=== PATIENT | female | born 1945 | race Caucasian/White ===

== ENCOUNTER → 2024-05-23 09:10 | Outpatient (REF) | payer MEDICARE, OTHER, SELFPAY | LOC: HWWDC 09:10 | PROVIDERS: ATTENDING PHYSICIAN Internal Medicine | DX: Z12.31 Encounter for screening mammogram for malignant neoplasm of breast (principal) | CPT/HCPCS: 77063; 77067 ==

== ENCOUNTER → 2024-06-27 12:02 | Outpatient (REF) | payer MEDICARE, OTHER, SELFPAY | LOC: HWRAD 12:02 | PROVIDERS: ATTENDING PHYSICIAN Nurse Practitioner | DX: M25.512 Pain in left shoulder (principal) | CPT/HCPCS: 73030 ==

== ENCOUNTER → 2024-09-07 11:56 | Outpatient (REF) | payer MEDICARE, OTHER, SELFPAY | LOC: HWRAD 11:56 | PROVIDERS: ATTENDING PHYSICIAN Nurse Practitioner; FAMILY PHYSICIAN Internal Medicine | DX: M25.512 Pain in left shoulder (principal); R10.11 Right upper quadrant pain | CPT/HCPCS: 73200; 76700 ==

== ENCOUNTER 2025-06-14 19:41 | Inpatient (IN) | payer MEDICARE, OTHER, SELFPAY ==
[2025-06-14] VITALS (8 sets, daily range): BP systolic 162–196; BP diastolic 89–106; BMI 22.1; BMI 21.9
[2025-06-14 11:39] LABS: Hematocrit 44.2 % (37.0-47.0); Hemoglobin 14.5 g/dL (12.0-16.0); Mean Corp Hgb Conc. 32.8 g/dL (33.0-37.0); Mean Corpuscular Volume 102.1 fL (81.0-99.0); Nucleated Red Blood Cells % 0 %; Platelet Count 348 10^3/uL (130-400); Red Cell Dist. Width 12.8 % (11.5-14.5)
[2025-06-14 12:11] LABS: Blood Urea Nitrogen 35 mg/dl (7-17); Calcium 9.7 mg/dl (8.4-10.2); Carbon Dioxide 22 mmol/L (22-30); Chloride 111 mmol/L (98-107); Estimated Creatinine Clearance 33 ml/min; Glucose 113 mg/dl (70-99); Sodium 140 mmol/L (135-145); eGFR 46.33
--- NOTE | 2025-06-14 12:33 | ED.GENMED ---
History of Present Illness
General
Chief Complaint: Weakness
Source: patient
Exam Limitations: none
Time Seen by Provider: 06/14/25 12:06
Nursing documentation reviewed up to this point in time: agreed with
History of Present Illness
History of Present Illness:
Patient is a 80-year-old female with history CHF, CAD with pacemaker/defibrillator, hypertension, hyperlipidemia, diabetes who presents the emergency department with 4 days of generalized weakness and lower abdominal discomfort. Patient states that
over the past 4 days she has been extremely fatigued and generally weak feeling that she cannot get out of bed. She reports experiencing urinary frequency over the past few days and lower abdominal discomfort. She feels the urge to urinate
frequently although very little urine comes out. She also reports a few episodes of loose stools although this does occasionally have abnormal bowel movements.
Patient denies any fever, chills, cough, or other URI symptoms. She denies any chest pain, shortness of breath. She denies any back pain, lightheadedness/dizziness. No focal weakness or other neurologic symptoms. No headache.
Past History
Past History
ED Past Medical History: Arrthythmia, CAD, CHF, HTN and Other (Peptic ulcer disease)
ED Past Surgical History: None and Appendectomy
Social History
Tobacco: Non-smoker
Review of Systems
Review of Systems
Allergies reviewed?: Yes
All Other Systems: ROS reviewed and negative except as documented in HPI and ROS
Phy Exam
Physical Exam
Physical Exam:
Vitals: Hypertensive, otherwise vital signs stable. Afebrile
General: Patient is well appearing, no acute distress
Skin: Warm and dry, no rashes or lesions
Head: Normocephalic, atraumatic
Eyes: Sclera nonicteric.
Throat: Protecting airway
Neck: Normal ROM, no cervical spine tenderness, no meningismus
Cardiac: Regular rate and rhythm, no murmurs.
Pulm: Normal respiratory effort, no wheezes, rales, rhonchi heard on exam
Abdomen: Abdomen soft. Tenderness in suprapubic area/ LLQ without rebound tenderness or guarding. No CVA tenderness.
Extremities: No evidence of cyanosis or edema. 2+ palpable DP pulses
Neuro: AAOx3. CN II-XII grossly intact. Strength 5/5 and equal in bilateral upper/lower extremities. No facial droop or asymmetry. Fluid speech. No focal neurologic deficits.
Psychiatric: Normal affect.
Course
Orders/Labs/Results
Orders:
Orders
06/14/25 11:34
Basic Metabolic Panel Urgent
CPK [Creatine Phosphokinase] Urgent
Complete Blood Count/With Diff Urgent
06/14/25 12:31
pacemaker [Interrogate Pacemaker- Treatment] ONCE
06/14/25 12:32
Electrocardiogram (*1) Urgent
Reason for Study: Fatigue / Weakness
CT Abd/pelvis W Iv Cont Urgent
Comment:
Reason For Exam: Lower abdominal pain, weakness
EKG- Treatment ONCE
06/14/25 13:57
Urinalysis Reflex To Culture Urgent
Date Specimen was Collected: 06/14/25
Time Specimen was Collected: 13:54
Urine Microscopic Reflex Cult Urgent
Urine Culture Urgent
HOMERO Source: U
Specimen Description:
Date Specimen was Collected: 06/14/25
Time Specimen was Collected: 13:54
06/14/25 15:34
Basic Metabolic Panel Urgent
Bzdci-Sstk-Fzyjkbq Urgent
NT-proBNP Urgent
Potassium Urgent
Troponin I Urgent
06/14/25 15:37
Acetaminophen [Tylenol] 650 mg PO NOW STA
06/14/25 17:45
0.9% Sodium Chloride 500 ml [Nss] 500 ml IV BOLUS
06/14/25 17:57
Piperacillin/Tazo 3.375 Gram [Zosyn] 3.375 gram in 50 ml IV NOW
06/14/25 18:00
COVID-19 Antigen Urgent
Source: Nasal Swab
06/14/25 18:26
Admit/Transfer Patient As Directed
Co-Sign Provider:
Level of Care: Inpatient admission
Assign to:: Telemetry
Physician / Group: pee sy
Diagnosis: UTI
Reason for Telemetry: Arrhythmia
Date to Stop Telemetry: 06/17/25
Time to Stop Telemetry: 11:00
Reason for Hospitalization: UTI
Expected length of stay greater than two midnights?: Yes
ELOS- Estimated Length of Stay in days: 3
I certify the patient meets the requirements for IP care: Yes
06/14/25 18:27
Code Status As Directed
Resuscitation Status: Full Code
PRN Pain Medication Management As Directed
May give lesser potent ordered pain med per pt: Yes
preference::
Protocol:: Medication orders for pain may be administered in a
manner that supports deferring to patient preference
when the pt is:
- Requesting an ordered lesser potent pain medication.
Least to most potent pain medications are defined
as: acetaminophen < NSAID < tramadol < opioids
(morphine, oxycodone, hydromorphone).
- Requesting a lesser dose of the same medication IF
ORDERED.
- Requesting a less intrusive route of administration
if both routes are prescribed by the provider (PO <
IV).
06/14/25 19:15
Lyme PCR, DNA [S] Routine
Lyme Progressive Routine
Norovirus by PCR Stat
HOMERO Source: Feces/Stool
Specimen Description:
Date Specimen was Collected: 06/14/25
Time Specimen was Collected: 19:11
STOOL [C difficile Antigen & Toxins] Urgent
HOMERO Source: Feces/Stool
Specimen Description:
Date Specimen was Collected: 06/14/25
Time Specimen was Collected: 19:11
Stool Culture Urgent
HOMERO Source: Feces/Stool
Specimen Description:
Date Specimen was Collected: 06/14/25
Time Specimen was Collected: 19:11
06/14/25 20:27
Acetaminophen [Tylenol] 650 mg PO Q4HPRN PRN
Carvedilol [Coreg] 6.25 mg PO BID
Heparin 5,000 units SC Q12
Oxycodone [Roxicodone] 5 mg PO Q6HPRN PRN severe pains
06/14/25 20:27
Activity As Directed
Activity Level: As Tolerated
Intake/ Output As Directed
Frequency: Per unit guidelines
Vital Signs As Directed
Frequency: Per unit guidelines
Weight As Directed
Frequency: Daily
DX Deep Vein Thrombosis Video Routine
06/14/25 22:00
Aspirin Low Dose EC [Aspir Low (Enteric Coated)] 81 mg PO HS
Rosuvastatin Calcium [Crestor] 10 mg PO HS
06/15/25 07:02
Basic Metabolic Panel IN AM
Complete Blood Count/No Diff IN AM
Glycohemoglobin (HgbA1c) IN AM
06/16/25 06:00
Complete Blood Count/No Diff IN AM
06/17/25 06:00
Complete Blood Count/No Diff IN AM
06/17/25 11:00
DC Protocol for Telemetry ONCE
Abnormal Lab Results
06/14/25 06/14/25 06/14/25
11:34 13:57 15:34
WBC 15.2 H 10^3/uL
(4.8-10.8)
MCV 102.1 H fL
(81.0-99.0)
MCH 33.5 H pg
(27.0-31.0)
MCHC 32.8 L g/dL
(33.0-37.0)
Abs Immat Gran (auto) 0.1 H 10^3/uL
(0-0.05)
Absolute Neuts (auto) 12.1 H 10^3/uL
(1.4-6.5)
Absolute Monos (auto) 1.0 H 10^3/uL
(0.1-0.6)
Neutrophils % 80.1 H %
(42.2-75.2)
Lymphocytes % 11.9 L %
(20.5-51.1)
Chloride 111 H mmol/L 110 H mmol/L
(98-107) (98-107)
Carbon Dioxide 21 L mmol/L
(22-30)
BUN 35 H mg/dl 35 H mg/dl
(7-17) (7-17)
Creatinine 1.2 H mg/dL 1.2 H mg/dL
(0.6-1.0) (0.6-1.0)
Glucose 113 H mg/dl 105 H mg/dl
(70-99) (70-99)
Direct Bilirubin 0.5 H mg/dl
(0.0-0.4)
Alkaline Phosphatase 136 H U/L
(38-126)
Creatine Kinase 26 L U/L
(30-135)
Urine Ketones 1+ A
(Negative)
Ur Occult Blood Reflex 1+ A
(Negative)
Urine Bilirubin 1+ A
(Negative)
Leukocyte Esterase Rfl 3+ A
(Negative)
Urine WBC (Reflex) 16-20 A /HPF
(0-5)
Urine Bacteria (Reflex) Many A
(Negative)
Urine Albumin (Reflex) 2+ A
(Neg - Trace)
06/14/25 11:34
06/14/25 15:34
Vital Signs
Initial and Last Documented VS:
Initial Vital Signs
Temp Pulse Resp BP Pulse Ox
97.8 F 94 20 176/106 98
06/14/25 10:25 07/18/25 10:25 06/14/25 10:25 06/14/25 10:25 06/14/25 10:25
Last Documented Vital Signs
Temp Pulse Resp BP Pulse Ox
98.5 F 76 18 196/105 100
06/15/25 15:30 06/15/25 15:30 06/15/25 15:30 06/15/25 15:30 06/15/25 15:30
MDM/Problems Addressed
Differential Diagnosis Includes:
Not limited to: Acute dehydration, viral illness, cardiac arrhythmia, pacemaker malfunction, UTI, pyelonephritis, diverticulitis, etc.
MDM/Problems Addressed:
80-year-old female presenting with 4 days of generalized weakness associated with lower abdominal discomfort and urinary frequency. No fever or chills. No chest pain or shortness of breath. Hypertensive on arrival, otherwise stable and afebrile.
Physical exam as above. Patient in no apparent distress, nontoxic appearing. Abdomen soft with mild lower abdominal discomfort. No rebound tenderness or guarding. Cardio/pulmonary assessment unremarkable. Differential broad although includes
dehydration, viral illness, cardiac arrhythmia, etc. ED plan: Check labs, UA, viral studies. Will obtain CT scan/pelvis. Will obtain EKG and interrogate pacemaker.
Update: Leukocytosis of 14.3. Chemistry reveals mild renal insufficiency which remains around her baseline. BNP of 1740. Troponin undetectable. Urine appears somewhat infected with many bacteria and 16-20 WBCs although possible component of
contamination given many squamous cells noted. CT scan reveals findings consistent with acute infectious pancolitis�likely contributing to patient's symptoms today. Will send stool studies. Given CT findings as well as possible UTI and
significant weakness�feel patient to be admitted for IV antibiotics, further evaluation. Zosyn initiated in ED. Patient accepted to hospitalist service in stable condition.
Chronic conditions affecting care:
CHF, CAD with pacemaker/defibrillator, hypertension
Acute Exacerbation and/or Progression of Chronic Illness:
Acutely hypertensive
*Radiology
Radiology exam reviewed: radiology read reviewed
*Pulse Oximetry
SaO2: 99
Patient hypoxic: no
*EKG
Interpreted by ED Provider?: Yes
EKG Intrepretation Date: 06/14/25
Interpretation: abnormal
Comparison EKG: changes noted
Heart Rate: 74
Rate: normal
Rhythm: ventricular paced
[place]: normal axis
*Instrumentation Engineering Technician Interpretation
Rate: normal
Interpretation: normal
Heart Rate: 80
Rhythm: ventricular paced
*Critical Care Note
Total Time (30-74mins, 75-104mins- exclusive of procedures): Not Applicable
Patient Management
Discussion with other providers: Hospitalist
Escalation/DeEscalation of care consider admission/obs:
Admit for IV antibiotics, further management
ED Attending Note
-
Portions of this chart may have been created with voice recognition software.� Occasional wrong word or��sound alike� substitutions may have occurred due to the inherent limitations of voice recognition software.
Discharge Plan
Departure
Patient Disposition: Admit
Date of Disposition: 06/14/25
Time of Disposition: 17:57
Presentation/result/management discussed w/ accepting MD/DO: Hospitalist
Discharge Problem:
Pancolitis, Weakness, Acute UTI
Interventions
Interventions:
*Risk Screen - Suicide Last Done: 06/14/25 10:25
*General Assessment Last Done: 06/14/25 10:25
*Neglect/Abuse Screening Last Done: 06/14/25 10:25
*ED- Fall Risk Assessment Last Done: 06/14/25 12:02
*ED COVID-19 Vaccine History Last Done: 06/14/25 12:02
*Nursing Disposition Last Done: 06/14/25 20:06
ED- Cardiac Assessment Last Done: 06/14/25 12:02
ED- Neurological Assessment Last Done: 06/14/25 12:02
ED- Pulmonary Assessment Last Done: 06/14/25 12:02
Discharge Date and Time
Discharge Date/Time: 06/14/25 20:06
[2025-06-14 14:14] LABS: Urine Character Slightly Cloudy (Clear)
[2025-06-14 15:03] LABS: Urine Squamous Cell 21-25 /LPF (Few)
[2025-06-14 15:04] LABS: Urine Red Blood Cell 0-2 /HPF (0-2); Urine White Cell 16-20 /HPF (0-5)
[2025-06-14] MEDS: TYLENOL 650 MG PO (15:41)
[2025-06-14 15:53] LABS: Blood Urea Nitrogen 35 mg/dl (7-17); Calcium 10.0 mg/dl (8.4-10.2); Carbon Dioxide 21 mmol/L (22-30); Chloride 110 mmol/L (98-107); Estimated Creatinine Clearance 33 ml/min; Glucose 105 mg/dl (70-99); Potassium 4.5 mmol/L (3.5-5.1); Sodium 140 mmol/L (135-145); eGFR 46.33
[2025-06-14 15:57] LABS: ALT (SGPT) 12 U/L (0-35); AST (SGOT) 20 U/L (14-36); Albumin 4.7 g/dl (3.5-5.0); Alkaline Phosphatase 136 U/L (38-126); Potassium 4.5 mmol/L (3.5-5.1); Total Protein 8.0 g/dl (6.3-8.2)
[2025-06-14 16:05] LABS: Troponin I < 0.012 ng/ml
[2025-06-14] MEDS: NSS 500 IV (17:57)
--- NOTE | 2025-06-14 18:08 | HPS.HSE ---
Family Physician
-
Family Physician: Daniel Greco
Chief Complaint
-
generalized weakness.
History of Present Illness
80-year-old female with history CHF, CAD with pacemaker/defibrillator, hypertension, hyperlipidemia, diabetes who presents the emergency department with 5 days of generalized weakness and lower abdominal discomfort. Patient states that over the
past 4 days she has been extremely fatigued and generally weak feeling that she cannot get out of bed. She reports experiencing urinary frequency over the past few days and lower abdominal discomfort. denied dysuria or hematuria. She feels the
urge to urinate frequently although very little urine comes out. She also reports a few episodes of loose stools although this does occasionally have abnormal bowel movements.Patient denies any fever, chills, cough. She denies any chest pain,
shortness of breath. She denies any back pain, lightheadedness/dizziness.
CT with panculitis. positive UA. Patient received a dose of Zosyn, normal Nelson catheter following ER. Admitting for further management
Medical History
Past Medical History
Past Medical History: Reports Other
Additional Past Medical History:
Hyperlipidemia
Hypertension
CKD
A-fib
CHF
Type 2 diabetes
Dizziness
Respiratory
Past Surgical History: Reports Other
Additional Past Surgical History:
Right knee replacement
Cardiac pacemaker
Umbilical hernia repair
Social History
Tobacco: Former Smoker
Alcohol: Occasional
Drug: None
Family History
Family History: Not pertinent
Allergies / Home Medications
Allergies reflects when Allergies were last updated in [facility].
Home Medications with original date entered in [facility]
Allergy/Medication List:
Allergies
Allergy/AdvReac Type Severity Reaction Status Date / Time
fluticasone (From Flonase) Allergy Unknown Verified 06/14/25 10:29
doxycycline AdvReac Mild Nausea Verified 06/14/25 10:29
Home Medications
carvedilol 6.25 mg tablet 6.25 mg PO BID Blood pressure 10/07/15
losartan 50 mg tablet 50 mg PO DAILY Blood pressure 10/07/15
rosuvastatin 10 mg tablet 10 mg PO HS High cholesterol 10/07/15
acetaminophen 500 mg tablet (Tylenol Extra Strength) 1,000 mg PO Q6HPRN PRN MILD PAIN 10/09/21
aspirin 81 mg tablet,delayed release 81 mg PO HS Blood clot prevention/tx 04/26/22
esomeprazole magnesium 20 mg capsule,delayed release 20 mg PO DAILY Gastrointestinal issue 04/26/22
magnesium carbonate 54 mg/5 mL oral liquid (Magonate (magnesium carb)) 86 mg PO HS Constipation 04/26/22
benzonatate 100 mg capsule 200 mg (2 x 100 mg) PO TID PRN cough #30 caps 05/03/22
cephalexin 500 mg capsule 500 mg PO QID 7 days #28 caps 05/03/22
gabapentin 100 mg capsule 100 mg PO HS #30 caps 05/03/22
guaifenesin 600 mg tablet, extended release 12 hr (Mucus Relief ER) 1,200 mg (2 x 600 mg) PO Q12 #30 tabs 05/03/22
lidocaine 4 % topical patch (Aspercreme (lidocaine)) 1 patch topical DAILY #30 patches 05/03/22
oxycodone 5 mg tablet 5 mg PO Q4HPRN PRN mod pain #5 tabs 05/03/22
sennosides 8.6 mg-docusate sodium 50 mg tablet 1 tab PO DAILYPRN PRN constipation #20 tabs 05/03/22
Review of Systems
-
Constitutional: Reports No Symptoms
EENT: Reports No Symptoms
Respiratory: Reports No Symptoms
Cardiac: Reports No Symptoms
Abdomen/GI: Reports Abdominal Pain and Diarrhea
: Reports Urgency
Musculoskeletal: Reports No Symptoms
Skin: Reports No Symptoms
Neurological: Reports Weakness
Endocrine: Reports No Symptoms
Hematologic/Lymphatic: Reports No Symptoms
Psych: Reports No Symptoms
Physical Exam
Vital Signs
Vital Signs
Temp Pulse Resp BP Pulse Ox
97.8 F 81 15 189/105 96
06/14/25 10:25 06/14/25 17:30 06/14/25 17:30 06/14/25 15:34 06/14/25 17:30
Physical Exam
General: Well Developed, Well Nourished and No Apparent Distress
HEENT: NormoCephalic, Moist mucous membranes and Atraumatic
Respiratory: Clear
Cardiac: S1/S2 and Regular Rhythm; No Murmur or Rub
GI: Soft, Non Tender, Non Distended and Normal Bowel Sounds; No Organomegaly
Rectal: Deferred by Provider
Musculoskeletal: No Clubbing, No Cyanosis and No Edema
Skin: No Rash
Neuro: AO x 3 and Nonfocal/grossly intact
Psych: Calm
Laboratory Results
-
06/14/25 11:34
06/14/25 15:34
Laboratory Results
Total Bilirubin 0.8 mg/dl (0.2-1.3) 06/14/25 15:34
AST 20 U/L (14-36) 06/14/25 15:34
ALT 12 U/L (0-35) 06/14/25 15:34
Alkaline Phosphatase 136 U/L (38-126) H 06/14/25 15:34
Troponin I < 0.012 ng/ml 06/14/25 15:34
Data Reviewed
-
CT Scan: Report Reviewed by me
Lab Data: Labs Reviewed by me
Impression/Plan
-
# Acute infectious pancolitis
- WBC 15.2
- IV Zosyn continued
- Stool studies pending
- CT with the impression of MILD ACUTE INFECTIOUS PANCOLITIS.
# Possible UTI
- IV Zosyn continued
- Urine culture pending
# CKD stage IIIb
- Creatinine 1.2
# Paroxysmal A-fib
- Obtain EKG
-cont COPY LATHE TENDER coreg with hold parameter
-not on AC likely due to recent PUD
# Peptic ulcer disease
# chronic HFpEF
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
# HTN, stable
-c/w COPY LATHE TENDER coreg
-hold losartan
#DVT ppx: HSQ
#FC
[2025-06-14] MEDS: ZOSYN 50 IV (18:27)
[2025-06-14 18:34] LABS: COVID-19 Antigen Negative (Negative)
--- NOTE | 2025-06-14 18:54 | W.PN.UPDATE ---
Update Note
Progress Note Update
This note serves as an addendum to the H&P by culinary artist SERENE Leny FRAZIER
HPI
80F HX CHF, CAD with pacemaker/defibrillator, hypertension, hyperlipidemia, diabetes seen at ER:
- 4 days of generalized weakness and lower abdominal discomfort.
- extremely fatigued and generally weak feeling that she cannot get out of bed.
- urinary frequency and urgency over the past few days and lower abdominal discomfort.
- few episodes of loose stools although this does occasionally have abnormal bowel movements.
ROS
denies any fever, chills, cough, or other URI symptoms.
denies any chest pain, shortness of breath.
denies any back pain, lightheadedness/dizziness.
No focal weakness or other neurologic symptoms. No headache.
Relevant VS
Vital Signs
Temp Pulse Resp BP Pulse Ox
97.8 F 73 21 189/105 98
06/14/25 10:25 06/14/25 18:45 06/14/25 18:45 06/14/25 15:34 06/14/25 18:30
PE
Gen: NAD
Neck: supple
Lungs: CTA
Cor: RR no mumu
Abdomen: Tenderness in suprapubic area/ LLQ without rebound tenderness or guarding. No CVA tenderness.
INWEAVER: NFND
MS: no edema
Lab
06/14/25 06/14/25
11:34 15:34
WBC 15.2 H
Chloride 111 H 110 H
Carbon Dioxide 21 L
BUN 35 H 35 H
Creatinine 1.2 H 1.2 H
eGFR 46.33 46.33
Troponin I < 0.012
Ssm-M-Jlgahfqeesw Pept 1740
CT Abd/pelvis W Iv Cont
1. MILD ACUTE INFECTIOUS PANCOLITIS.
2. Severe diverticulosis in the sigmoid colon.
3. Severe calcific atherosclerotic plaque in the abdominal aorta.
4. Severe bilateral renal scarring.
5. Moderate distention of the left renal pelvis (possibly secondary to a partial obstruction of the left ureteropelvic junction).
6. Mild intrahepatic and extrahepatic biliary dilatation with mild biliary wall hyperenhancement suggesting cholangitis.
7. Cholelithiasis without evidence for acute cholecystitis.
8. Multilevel vertebral body endplate fractures in the lower thoracic and upper lumbar spine.
9. Severe discogenic degenerative disease and facet joint arthrosis in the lower lumbar spine.
Last hospitalist admission: 04/26/2022 - 05/03/2022
1. HAP methicillin-sensitive Staph aureus.
2. 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
ASSESSMENT & PLAN
Pending Rx reconciliation
Acute pancolitis presumed infective with tender abdomen
Severe diverticulosis in the sigmoid colon.
- No vomiting
- Stool: Cx and C Diff
- Noro Virus
- Diabetic diet
- IVF
- Empiric Zosyn
HX Prx AF
- cont VIDEO MANAGER Coreg with hold parameter
- not on AC likely due to recent PUD
HX PUD in 2021
- Hold VIDEO MANAGER PPI due to risk for C Diff
HX chronic HFpEF
HX CM
with Bi-V ICD implant
HX CKD4
- Hold Losartan if she is on it
- Hold Metformin
Benign HTN
- c/w VIDEO MANAGER Coreg
- hold losartan
T2DM
- hold VIDEO MANAGER metformin
- ISS low
DVT Px: SQH
Full code
IP MS
[2025-06-14] MEDS: ASPIR LOW (ENTERIC COATED) 81 MG PO (21:50)
[2025-06-14] MEDS: CRESTOR 10 MG PO (21:50)
[2025-06-14] MEDS: HEPARIN 5000 UNITS SC (21:50)
[2025-06-14] MEDS: COREG 6.25 MG PO (21:50)
[2025-06-14] MEDS: ROXICODONE 5 MG PO (22:07)
[2025-06-14] MEDS: MELATONIN 3 MG PO (22:07)
[2025-06-15] VITALS (8 sets, daily range): BP systolic 148–196; BP diastolic 61–105; BMI 21.7
[2025-06-15] MEDS: ZOSYN 50 IV ×4 (05:53→17:01)
[2025-06-15] MEDS: NSS 1000 IV (06:13)
--- NOTE | 2025-06-15 07:27 | W.PN.HOSP.TC ---
Addendum entered and electronically signed by Bryan Ramirez MD 06/15/25 21:45:
Earlier today, I called and updated patient's son Neal (and Neal's ) over the phone. I answered all of their questions and concerns to satisfaction.
It is important to note that patient:
-has NOT had any bloody diarrhea or any bloody bowel movements (both patient herself and patient's son Neal confirmed this with me)
-Patient's abdominal pain is not out of proportion to abdominal exam/abdominal palpation
Original Note:
Today's Communication/Plan
-
Continue antibiotics
Continue IV fluids
Pain control
NPO
MRCP
Assessment / Plan
Assessment / Plan
Physical Exam
General: Not in acute distress
HEENT: Normocephalic, Moist mucous membranes and Atraumatic
Respiratory: Clear to Auscultation Bilaterally
Cardiac: S1/S2 and Regular Rhythm
GI: Soft, Non Distended and Normal Bowel Sounds. Tenderness present.
Musculoskeletal: No Cyanosis and No Edema
Skin: Warm. Dry.
Neuro: AO x 3 and Nonfocal/grossly intact
Psych: Calm
Assessment/Plan
80-year-old female with history CHF, CAD with pacemaker/defibrillator, hypertension, hyperlipidemia, and diabetes mellitus who presented to the emergency department with 5 days of generalized weakness and lower abdominal discomfort. She had been
extremely fatigued and generally weak, feeling that she could not get out of bed. She reported experiencing urinary frequency and urgency over the few days prior to arrival as well. She denied dysuria or hematuria. She also reported a few episodes
of loose stools although she does occasionally have abnormal bowel movements. At the time of admission, patient denied any fever, chills, cough, chest pain, shortness of breath, back pain, lightheadedness/dizziness.
#Presentation with Generalized Weakness, Fatigue and Lower Abdominal Discomfort, few episodes of loose stools
#Acute infectious pancolitis
#Severe diverticulosis in the sigmoid colon
#Mild intrahepatic and extrahepatic biliary dilatation with mild biliary wall hyperenhancement suggesting cholangitis
#Cholelithiasis
#Leukocytosis
- Continue IV antibiotics with Zosyn
- C. diff negative. Norovirus negative.
- NPO except medication, ice chips, sips of clears
- IV fluids
- MCRP
- GI consult given cholangitis/dilated biliary ducts on CT imaging
- Trend CMP
#Non Anion Gap Metabolic Acidosis
- Could be from normal saline IV fluids, diarrhea
- Stop normal saline IV fluids
- Start LR @ 75 cc/hr -- LR generates bicarb and bicarb is currently 19, if not improving or worsened then can consider bicarb drip
#Symptoms of urinary frequency and urinary urgency prior to arrival
#Oliguria prior to arrival
- IV Zosyn continued
- Urine culture growing gram negative bacilli
#Paroxysmal Atrial Fibrillation
- cont HEAVY TRUCK TECHNICIAN Coreg with hold parameter
- not on AC likely due to recent peptic ulcer disease
#History of Peptic Ulcer Disease in 2021
- Received red blood cell transfusions around the time of having peptic ulcer disease
- Resume PPI
#Chronic HFpEF
#History of cardiomyopathy status post Bi-V ICD
-Continue home Coreg and Losartan
#Chronic Kidney Disease Stage 3
- Monitor BMP
#Hypertension
- Continue home Coreg
- Continue losartan
#Hyperlipidemia
- Continue Rosuvastatin
#Diabetes Mellitus
- ISS low
#History of hospital-acquired pneumonia with methicillin-sensitive Staph aureus in 2021
#History of Right Knee Surgery
#History of Compression Fracture
#Severe calcific atherosclerotic plaque in the abdominal aorta.
#Severe bilateral renal scarring.
#Moderate distention of the left renal pelvis (possibly secondary to a partial obstruction of the left ureteropelvic junction).
#Multilevel vertebral body endplate fractures in the lower thoracic and upper lumbar spine.
#Severe discogenic degenerative disease and facet joint arthrosis in the lower lumbar spine.
DVT Prophylaxis: Heparin subq
Code Status: Full code
Anticipated Discharge: > 48 hours
Subjective/Interval History
-
Date of Service: June 15, 2025
Patient was seen and examined. She reported continued abdominal discomfort. No new symptoms since being admitted to the hospital.
Objective Data
-
Labs:
Laboratory Results
06/15/25
07:02
WBC Pending
Hgb Pending
Hct Pending
Plt Count Pending
Sodium Pending
Potassium Pending
Chloride Pending
Carbon Dioxide Pending
BUN Pending
Creatinine Pending
Glucose Pending
Calcium Pending
Vital Signs:
Vital Signs
Temp Pulse Resp BP Pulse Ox
97.9 F 93 14 148/73 98
06/15/25 03:00 06/15/25 03:00 06/15/25 03:00 06/15/25 03:00 06/15/25 03:00
[2025-06-15] MEDS: COREG 6.25 MG PO ×2 (07:37→19:20)
[2025-06-15] MEDS: HEPARIN 5000 UNITS SC ×2 (07:37→19:20)
[2025-06-15 08:05] LABS: Hematocrit 39.4 % (37.0-47.0); Hemoglobin 13.0 g/dL (12.0-16.0); Mean Corp Hgb Conc. 33.0 g/dL (33.0-37.0); Mean Corpuscular Volume 101.3 fL (81.0-99.0); Platelet Count 298 10^3/uL (130-400); Red Cell Dist. Width 13.0 % (11.5-14.5)
[2025-06-15 08:34] LABS: Blood Urea Nitrogen 34 mg/dl (7-17); Calcium 9.4 mg/dl (8.4-10.2); Carbon Dioxide 15 mmol/L (22-30); Chloride 108 mmol/L (98-107); Estimated Creatinine Clearance 33 ml/min; Glucose 167 mg/dl (70-99); Potassium 4.4 mmol/L (3.5-5.1); Sodium 139 mmol/L (135-145); eGFR 46.33
[2025-06-15 09:06] LABS: Glycohemoglobin (HgbA1c) 5.8 % (4.0-5.6)
[2025-06-15] MEDS: ROXICODONE 5 MG PO ×2 (12:47→19:22)
[2025-06-15 16:07] LABS: ALT (SGPT) 11 U/L (0-35); AST (SGOT) 19 U/L (14-36); Albumin 4.3 g/dl (3.5-5.0); Alkaline Phosphatase 102 U/L (38-126); Blood Urea Nitrogen 32 mg/dl (7-17); Calcium 9.3 mg/dl (8.4-10.2); Carbon Dioxide 19 mmol/L (22-30); Chloride 108 mmol/L (98-107); Estimated Creatinine Clearance 33 ml/min; Glucose 133 mg/dl (70-99); Magnesium 2.0 mg/dl (1.6-2.3); Potassium 4.3 mmol/L (3.5-5.1); Sodium 138 mmol/L (135-145); Total Protein 7.1 g/dl (6.3-8.2); eGFR 46.33
[2025-06-15] MEDS: NORVASC 2.5 MG PO (16:14)
[2025-06-15] MEDS: COZAAR 100 MG PO (16:15)
[2025-06-15] MEDS: LR 1000 IV (16:55)
[2025-06-15] MEDS: ASPIR LOW (ENTERIC COATED) 81 MG PO (19:20)
[2025-06-15] MEDS: CRESTOR 10 MG PO (19:20)
[2025-06-15] MEDS: TYLENOL 650 MG PO (19:20)
[2025-06-16] VITALS (29 sets, daily range): BP systolic 111–212; BP diastolic 53–104; BMI 21.8
[2025-06-16] MEDS: TYLENOL 650 MG PO ×4 (00:03→20:07)
[2025-06-16] MEDS: ZOSYN 50 IV ×4 (00:04→17:58)
[2025-06-16] MEDS: APRESOLINE 5 MG IV ×2 (00:05→04:01)
[2025-06-16] MEDS: TIGAN 200 MG IM (02:34)
[2025-06-16] MEDS: ROXICODONE 5 MG PO (04:58)
[2025-06-16] MEDS: BENADRYL 12.5 MG IV (05:33)
[2025-06-16 07:14] LABS: Hematocrit 40.0 % (37.0-47.0); Hemoglobin 14.0 g/dL (12.0-16.0); Mean Corp Hgb Conc. 35.0 g/dL (33.0-37.0); Mean Corpuscular Volume 97.3 fL (81.0-99.0); Nucleated Red Blood Cells % 0 %; Platelet Count 287 10^3/uL (130-400); Red Cell Dist. Width 12.6 % (11.5-14.5)
[2025-06-16 07:34] LABS: ALT (SGPT) < 10 U/L (0-35); AST (SGOT) 20 U/L (14-36); Albumin 4.4 g/dl (3.5-5.0); Alkaline Phosphatase 105 U/L (38-126); Blood Urea Nitrogen 30 mg/dl (7-17); Calcium 9.8 mg/dl (8.4-10.2); Carbon Dioxide 20 mmol/L (22-30); Chloride 103 mmol/L (98-107); Estimated Creatinine Clearance 40 ml/min; Glucose 128 mg/dl (70-99); Potassium 3.7 mmol/L (3.5-5.1); Sodium 135 mmol/L (135-145); Total Protein 7.6 g/dl (6.3-8.2); eGFR 57.66
[2025-06-16] MEDS: LR 1000 IV (07:43)
[2025-06-16] MEDS: NORVASC 2.5 MG PO ×2 (07:43→11:32)
[2025-06-16] MEDS: COREG 6.25 MG PO ×2 (07:43→20:01)
[2025-06-16] MEDS: COZAAR 100 MG PO (07:44)
[2025-06-16] MEDS: HEPARIN 5000 UNITS SC ×2 (07:44→20:01)
--- NOTE | 2025-06-16 08:21 | W.PN.HOSP.TC ---
Addendum entered and electronically signed by Bryan Ramirez MD 06/16/25 20:36:
Just now, I called and updated patient's son Neal (and Neal's ) over the phone. I answered all of their questions and concerns to satisfaction.
Original Note:
Today's Communication/Plan
-
Cardene Drip to be started in ICU
Continue antibiotics
See below
Assessment / Plan
Assessment / Plan
Physical Exam
General: Not in acute distress
HEENT: Normocephalic, Moist mucous membranes and Atraumatic
Respiratory: Clear to Auscultation Bilaterally
Cardiac: S1/S2 and Regular Rhythm
GI: Soft, Non Distended and Normal Bowel Sounds. Tenderness present.
Musculoskeletal: No Cyanosis and No Edema
Skin: Warm. Dry.
Neuro: AAO x 3. Cranial Nerves 2 through 12 intact. Strength 5/5 in the bilateral upper and lower extremities. Sensation grossly intact bilaterally.
Psych: Calm
Assessment/Plan
80-year-old female with history CHF, CAD with pacemaker/defibrillator, hypertension, hyperlipidemia, and diabetes mellitus who presented to the emergency department with 5 days of generalized weakness and lower abdominal discomfort. She had been
extremely fatigued and generally weak, feeling that she could not get out of bed. She reported experiencing urinary frequency and urgency over the few days prior to arrival as well. She denied dysuria or hematuria. She also reported a few episodes
of loose stools although she does occasionally have abnormal bowel movements. At the time of admission, patient denied any fever, chills, cough, chest pain, shortness of breath, back pain, lightheadedness/dizziness.
#Presentation with Generalized Weakness, Fatigue and Lower Abdominal Discomfort, few episodes of loose stools
#Acute infectious pancolitis
#Severe diverticulosis in the sigmoid colon
#Mild intrahepatic and extrahepatic biliary dilatation with mild biliary wall hyperenhancement suggesting cholangitis
#Cholelithiasis
#Leukocytosis
- Continue IV antibiotics with Zosyn -- consulted ID given worsening leukocytosis and immature granulocytes despite Zosyn. Appreciate ID.
- C. diff negative. Norovirus negative.
- NPO except medication, ice chips, sips of clears
- IV fluids stopped given high blood pressure, can consider resuming at a lower dose later say at 50 cc/hr
- MCRP
- GI consult given cholangitis/dilated biliary ducts on CT imaging
- Trend CMP
- Appreciate GI: constipation and chronic opioid use are concerns, Mag citrate 10oz cleanse today; Adv to low residue diet afterwards; Miralax going forward
- GI feels infectious colitis is not supported by history and cholangitis is less likely (even though seen on imaging) but follow-up MRCP. Still continue antibiotics in the setting of leukocytosis and concern
for infection -- patient still at least has a UTI (see below)
-Per GI recommendations: Mag citrate 10oz cleanse today; Adv to low residue diet afterwards; Miralax going forward
#Significant Headache
-Could be from high blood pressure, cholangitis, colitis, antibiotics
-Checked CT Head (see below)
#Hypertensive Emergency
#Hypertension
- Despite treatment of patient's blood pressure with the medications below, her blood pressure remains very high with systolic 180s+ mmHg, patient has severe headache, discussed with machine operations supervisor and
transfer to ICU
- Continue home Coreg
- Continue losartan
- Added Amlodipine
- PRN Hydralazine
- Start Cardene Drip in the ICU with hypertensive emergency protocol
#Lacunar Stroke on CT Head 06/16/25
- Patient's neurological exam as of 06/16/25 was normal, but CT Head was done given severe headache in the setting if high blood pressure
- CT Head showed a stroke -- uncertain whether acute or chronic -- and in the setting of very high blood pressure -- consulted neurology
- I communicated with Dr. Haro (neurologist) via [employer], we discussed patient's CT Head findings from 06/16/25, and he agreed that patient should be treated as hypertensive emergency at this time with
Cardene Drip given
- Appreciate neurology
#Non Anion Gap Metabolic Acidosis
- Could be from normal saline IV fluids, diarrhea
- Stopped previously given normal saline IV fluids
- LR was subsequently given, bicarb improved
#Symptoms of urinary frequency and urinary urgency prior to arrival
#Oliguria prior to arrival
#Klebsiella Pneumoniae UTI
- IV Zosyn continued
- Urine culture grew Klebsiella, sensitive to Zosyn
#Paroxysmal Atrial Fibrillation
- cont JEWELRY DEPARTMENT SUPERVISOR Coreg with hold parameter
- not on AC likely due to recent peptic ulcer disease
#History of Peptic Ulcer Disease in 2021
- Received red blood cell transfusions around the time of having peptic ulcer disease
- Resume PPI
#Chronic HFpEF
#History of cardiomyopathy status post Bi-V ICD
-Continue home Coreg and Losartan
#Chronic Kidney Disease Stage 3
- Monitor BMP
#Hyperlipidemia
- Continue Rosuvastatin
#Diabetes Mellitus
- ISS low
#History of hospital-acquired pneumonia with methicillin-sensitive Staph aureus in 2021
#History of Right Knee Surgery
#History of Compression Fracture
#Severe calcific atherosclerotic plaque in the abdominal aorta.
#Severe bilateral renal scarring.
#Moderate distention of the left renal pelvis (possibly secondary to a partial obstruction of the left ureteropelvic junction).
#Multilevel vertebral body endplate fractures in the lower thoracic and upper lumbar spine.
#Severe discogenic degenerative disease and facet joint arthrosis in the lower lumbar spine.
DVT Prophylaxis: Heparin subq
Code Status: Full code
Hypertensive emergency is a high risk encounter
Anticipated Discharge: > 48 hours
Subjective/Interval History
-
Date of Service: June 16, 2025
Patient was seen and examined. She reported significant headache in the setting if high blood pressure. Still with nauseous feeling.
Objective Data
-
Labs:
Laboratory Results
06/16/25
06:42
WBC 19.1 H
Hgb 14.0
Hct 40.0
Plt Count 287
Sodium 135
Potassium 3.7
Chloride 103
Carbon Dioxide 20 L
BUN 30 H
Creatinine 1.0
Glucose 128 H
Calcium 9.8
Total Bilirubin 0.9
AST 20
ALT < 10
Alkaline Phosphatase 105
Vital Signs:
Vital Signs
Temp Pulse Resp BP Pulse Ox
98.7 F 79 16 166/88 98
06/16/25 03:00 06/16/25 03:00 06/16/25 03:00 06/16/25 06:10 06/16/25 03:00
--- NOTE | 2025-06-16 09:53 | CM ---
Chart reviewed and business case analyst met with patient and patient was admitted for UTI. Patient states she lives alone in a bilevel home with 4 steps to enter and 3 steps to bed and bathroom, patient reports she is independent with adl's and uses a cane
with ambulation due to some back pain.
PCP: Dr. Greco
Pharmacy: [facility] in [place]
Plan; Home no needs when stable.
--- NOTE | 2025-06-16 11:29 | CON.GI ---
Addendum entered and electronically signed by Deepali Celaya Do, MD 06/16/25 12:58:
I saw and evaluated the patient. I reviewed the resident�s note and agree with findings and plan as documented in the resident�s note. +
Hannah is a 77yo W lives alone with h/o DM, CAD and chroinc pain on opioids who presents for abd bloating and constipation. She also has fecal genia kage upon coughing or urination dependent on pad daily for past 6 mo. She denies diarrhea. She
denies blood in stools. Vitals stable. exam obese abdomen, NTTP, no guarding or rebound Labs reviewed WBC mildly elevated. CTAP with IV no oral contrast with pancolitis, tics, mild intra and extrahepatic ductal dilation. gallstones.
Impression
- Constipation
- Abnormal CT scan with thickening of pancolitis and ? biliary dilation
Mild biliary dilation is often seen with chronic opioid use and increased age. LFTs normal so low suspicion for cholangitis
- Chronic opioid use
- DM
- Hyperlipidemia
- Remote h/o PUD
- Pacemaker
- Umbilical hernia repair
- H/o back pain
Recommendation
- Mag citrate 10oz cleanse today
- Adv to low residue diet afterwards
- Miralax doing going forward
- No diarrhea at all since admission so stool studies not done. History not consistent with infectious colitis
- MRCP pending
- Continue to trend LFT but have been normal so less likely biliary obstruction
- May benefit from OP colonoscopy if constipation persists.
Will follow with you.
Original Note:
Consultation
-
Date/Time Consultation Requested: 06/15/2025
Date/Time Consultation Performed: 06/16/2025
Medical History
Chief Complaint / HPI
Chief Complaint: Lower abdominal pain
History of Present Illness:
Patient is a 80-year-old female with past medical history of coronary artery disease, hyperlipidemia, diabetes mellitus, and has been taking oxycodone 5 mg twice daily for chronic pain and as needed MiraLAX for constipation. She has been using
MiraLAX on as-needed basis for constipation and she feels like. She took extra dose and that contributed to her bowel movements becoming softer. She was at a dinner, she went to the bathroom to urinate and that is when she had another episode, it
was not watery but semisolid and contained no blood and was not black in color. She has had no issues with her bowels in the past. The diarrhea self resolved and she came to the ER because of urinary frequency, urgency and lower abdominal
heaviness.
She normally has no issues with eating fatty food, is diagnosed with gallstones and drinks 2 shots of tonic every day.
She denies any NSAID use, any new supplements use, recent weight loss, reflux, heartburn, indigestion, or issues with swallowing
Past Medical History
Past Medical History: Other (Hyperlipidemia, Type 2 diabetes, cholelithiasis)
Past Surgical History: Other (Umbilical hernia repair, cardiac pacemaker)
Social History
Tobacco: Former Smoker
Alcohol: Daily
Drug: None
Family History
Family History: Other (Denies any family history of stomach cancer, colon cancer, biliary issues, IBD)
Allergies / Home Medications
Allergy/AdvReac Type Severity Reaction Status Date / Time
doxycycline Allergy Nausea Verified 06/14/25 20:15
fluticasone (From Flonase) Allergy Unknown Verified 06/14/25 10:29
�Medication �Instructions �Recorded
carvedilol 6.25 mg tablet 6.25 mg PO BID Blood pressure 10/07/15
losartan 50 mg tablet 100 mg PO DAILY Blood pressure 10/07/15
rosuvastatin 10 mg tablet 10 mg PO HS High cholesterol 10/07/15
aspirin 81 mg tablet,delayed 81 mg PO HS Blood clot 04/26/22
release prevention/tx
oxycodone 10 mg tablet 10 mg PO Q6HPRN PRN severe pains 06/14/25
Review of Systems
-
All other systems: A 12 pt ROS was Negative except as stated above in HPI
Vital Signs
Temp Pulse Resp BP Pulse Ox
97.6 F 131 20 184/104 97
06/16/25 07:00 06/16/25 07:00 06/16/25 07:00 06/16/25 07:00 06/16/25 07:00
Physical Exam
Exam
General: Well Developed, No Apparent Distress and Other (Obese)
HEENT: Anicteric and Moist Mucous Membranes
Respiratory: Clear
Cardiac: S1/S2 and Regular Rhythm
GI: Soft, Normal Bowel Sounds and Tender (Tender in the epigastric and right upper quadrant region)
Musculoskeletal: No Clubbing, No Cyanosis and No Edema
Skin: Warm and Dry
Neuro: Awake and Oriented
Psych: Calm
Results
WBC 19.1 10^3/uL (4.8-10.8) H 06/16/25 06:42
Hgb 14.0 g/dL (12.0-16.0) 06/16/25 06:42
Hct 40.0 % (37.0-47.0) 06/16/25 06:42
MCV 97.3 fL (81.0-99.0) 06/16/25 06:42
Plt Count 287 10^3/uL (130-400) 06/16/25 06:42
Absolute Neuts (auto) 16.5 10^3/uL (1.4-6.5) H 06/16/25 06:42
Sodium 135 mmol/L (135-145) 06/16/25 06:42
Potassium 3.7 mmol/L (3.5-5.1) 06/16/25 06:42
Chloride 103 mmol/L (98-107) 06/16/25 06:42
Carbon Dioxide 20 mmol/L (22-30) L 06/16/25 06:42
BUN 30 mg/dl (7-17) H 06/16/25 06:42
Creatinine 1.0 mg/dL (0.6-1.0) 06/16/25 06:42
Calcium 9.8 mg/dl (8.4-10.2) 06/16/25 06:42
Total Bilirubin 0.9 mg/dl (0.2-1.3) 06/16/25 06:42
AST 20 U/L (14-36) 06/16/25 06:42
ALT < 10 U/L (0-35) 06/16/25 06:42
Alkaline Phosphatase 105 U/L (38-126) 06/16/25 06:42
Diagnostic Image Results:
01/2025
IMPRESSION:Cholelithiasis; gallbladder contains several small stones. No secondary findings for acute cholecystitis.Nonspecific dilatation of the common bile duct up to 12 mm (previously 6 mm on 02/16/2021) and mildprominence of the pancreatic duct
measuring up to 2.6 mm
06/14/2025
IMPRESSION:
1. MILD ACUTE INFECTIOUS PANCOLITIS.
2. Severe diverticulosis in the sigmoid colon.
3. Severe calcific atherosclerotic plaque in the abdominal aorta.
4. Severe bilateral renal scarring.
5. Moderate distention of the left renal pelvis (possibly secondary to a partial obstruction of the left ureteropelvic junction).
6. Mild intrahepatic and extrahepatic biliary dilatation with mild biliary wall hyperenhancement suggesting cholangitis.
7. Cholelithiasis without evidence for acute cholecystitis.
8. Multilevel vertebral body endplate fractures in the lower thoracic and upper lumbar spine.
9. Severe discogenic degenerative disease and facet joint arthrosis in the lower lumbar spine.
Prior GI Procedures:
EGD: Brandon Nichols MD
[id number] of acute gastric ulcer with hemorrhage
Impression: - Normal esophagus.
- Z-line regular, 37 cm from the incisors.
- Minimal antral gastritis. Biopsied for Helicobacter
pylori testing.
- Scar in the gastric antrum from previous ulcer.
- Normal examined duodenum. Biopsied for evaluation of
celiac disease.
Colonoscopy:
Indications: Screening for colorectal malignant neoplasm
Providers: Brandon Nichols MD
2008
Impression: - Mild diverticulosis in the sigmoid colon and in the
descending colon.
Assessment / Plan
-
Impression
Leukocytosis
History of cholelithiasis-history of extrahepatic duct dilatation-MRI/MRCP pending
History of alcohol use
Obese
Chronic opioid use for back pain
chronic constipation
History of diverticulosis
Stool studies negative, recent C. difficile
Follow stool culture
On Zosyn-Klebsiella on urine culture
Hypertension
Diabetes mellitus
Coronary artery disease
Recommendations
MRI/MRCP to evaluate for choledocholithiasis -if positive-plan ERCP
Post MRCP-can put on diet
Continue IV fluids
Follow blood cultures for bacteremia
-
-
Thank you for consultation and allowing me to participate in the patient's care. Please call the utility worker production GI physician during the after hours with any questions or concerns.
[2025-06-16] MEDS: CITROMA 300 ML PO (12:41)
--- NOTE | 2025-06-16 17:50 | CON.NEURO ---
Neuro Assessment/Plan
Assessment
agree with ICU for cardene gtt, this is typical appearing lacunar stroke, typically asymptomatic, small vessel etiology, and would not require permissive HTN 24-48 hrs, nor do I have a way to answer that question. would recommend the usual blood
pressure settings in accelerated HTN.
after blood pressure and infection are managed and she is downgraded, would obtain vascular imaging; CTA would be my preferred study
once all her real medical problems are addressed, they're interested in MRI to answer the stroke's acuity would be reasonable if they still want it, and they understand that it will not change the management, with her cardiac history stroke risk
will always be high, and there may be other more useful questions to be answered.
Consultation
Order
Date of Consultation: 06/16/25
Requesting Provider: Bryan Ramirez
Reason for Consult: Stroke, blood pressure goals
Subjective/Objective
Subjective Data
Date of Service: June 16, 2025
from h&p:
80-year-old female with history CHF, CAD with pacemaker/defibrillator, hypertension, hyperlipidemia, diabetes who presents the emergency department with 5 days of generalized weakness and lower abdominal discomfort. Patient states that over the
past 4 days she has been extremely fatigued and generally weak feeling that she cannot get out of bed. She reports experiencing urinary frequency over the past few days and lower abdominal discomfort. denied dysuria or hematuria. She feels the
urge to urinate frequently although very little urine comes out. She also reports a few episodes of loose stools although this does occasionally have abnormal bowel movements.Patient denies any fever, chills, cough. She denies any chest pain,
shortness of breath. She denies any back pain, lightheadedness/dizziness.
CT with panculitis. positive UA. Patient received a dose of Zosyn, normal Nelson catheter following ER. Admitting for further management
Patient had head CT showing age indeterminate 1cm right putamen/external capsule stroke. patient with accelerated HTN, as high as 212 systolic, being transferred to ICU for Cardene gtt, question of if stroke
she denies ever having stroke symptoms, except that when she was here Oct 2023 she presented with transient weakness, slurred speech, right sided weakness, at the time diagnosed TIA, at the time head CT also showed an age indeterminate stroke (right
thalamic)
Objective Data
Vital Signs
Temp Pulse Resp BP Pulse Ox
36.7 C 98 18 184/98 98
06/16/25 15:00 06/16/25 15:00 06/16/25 15:00 06/16/25 15:00 06/16/25 15:00
Lab Results
06/16/25 06:42
06/16/25 06:42
Sodium 135 mmol/L (135-145) 06/16/25 06:42
Potassium 3.7 mmol/L (3.5-5.1) 06/16/25 06:42
BUN 30 mg/dl (7-17) H 06/16/25 06:42
Glucose 128 mg/dl (70-99) H 06/16/25 06:42
Calcium 9.8 mg/dl (8.4-10.2) 06/16/25 06:42
Usm-X-Cuwglmwawmi Pept 1740 pg/ml 06/14/25 15:34
Patient Allergies
doxycycline Allergy (Verified 06/14/25 20:15)
Nausea
fluticasone (From Flonase) Allergy (Verified 06/14/25 10:29)
Unknown
Medications
-
Active Medications
Generic Name Dose Route Start Last Admin
Trade Name Freq PRN Reason Stop Dose Admin
Acetaminophen 650 mg 06/14/25 20:27 06/16/25 09:31
Acetaminophen 325 Mg Tablet PO 07/12/25 20:26 650 mg
Q4HPRN PRN Administration
mild pain/IRIZARRY/temp> 100.4F
Amlodipine Besylate 5 mg 06/16/25 20:00
Amlodipine 5 Mg Tablet PO 07/14/25 19:59
BID LIZ
Aspirin 81 mg 06/14/25 22:00 06/15/25 19:20
Aspirin 81 Mg (Enteric Coated) Tablet PO 07/12/25 21:59 81 mg
HS LIZ Administration
Carvedilol 6.25 mg 06/14/25 20:27 06/16/25 07:43
Carvedilol 6.25 Mg Tablet PO 07/12/25 20:26 6.25 mg
BID LIZ Administration
Heparin Sodium 5,000 units 06/14/25 20:27 06/16/25 07:44
Heparin 5,000 Units/Ml 1 Ml Vial SC 07/12/25 20: 5,000 units
Q12 LIZ Administration
Hydralazine HCl 5 mg 06/16/25 14:47
Hydralazine 20 Mg/Ml Vial IV 07/14/25 14:46
Q4HPRN PRN
SBP>170 mmHg
Piperacillin Sod/Tazobactam Sod 2.25 grams in 50 mls @ 100 mls/hr 06/15/25 00:00 06/16/25 11:33
Zosyn IV 50 mls
Q6H LIZ Administration
Nicardipine/Sodium Chloride 40 mg in 200 mls @ 0 mls/hr 06/16/25 17:15
Cardene IV
PER PROTOCOL LIZ
Protocol
Per Protocol
Losartan Potassium 100 mg 06/15/25 16:00 06/16/25 07:44
Losartan 50 Mg Tablet PO 07/13/25 15:59 100 mg
DAILY LIZ Administration
Melatonin 3 mg 06/14/25 22:00 06/16/25 00:00
Melatonin 3 Mg Tablet PO 07/12/25 21:59 3 mg
HS LIZ Administration
Oxycodone HCl 5 mg 06/14/25 20:27 06/16/25 04:58
Oxycodone 5 Mg Regular Release Tablet PO 06/28/25 20:26 5 mg
Q6HPRN PRN Administration
severe pains
Rosuvastatin Calcium 10 mg 06/14/25 22:00 06/15/25 19:20
Rosuvastatin (Crestor) 10 Mg Tablet PO 07/12/25 21:59 10 mg
HS LIZ Administration
Sodium Chloride 0 flush 06/14/25 21:00
Sodium Chloride 0.9% (Flush) Syringe IV 07/12/25 20:59
PER PROTOCOL LIZ
Home Medications
�Medication �Instructions �Recorded
carvedilol 6.25 mg tablet 6.25 mg PO BID Blood pressure 10/07/15
losartan 50 mg tablet 100 mg PO DAILY Blood pressure 10/07/15
rosuvastatin 10 mg tablet 10 mg PO HS High cholesterol 10/07/15
aspirin 81 mg tablet,delayed 81 mg PO HS Blood clot 04/26/22
release prevention/tx
oxycodone 10 mg tablet 10 mg PO Q6HPRN PRN severe pains 06/14/25
[2025-06-16] MEDS: CARDENE 200 IV (18:53)
--- NOTE | 2025-06-16 19:00 | PTCARENOTE ---
Pt received from floor to ICU bed 3362. Pt AAOx3. Ambulated to bed with steady gait. V-paced. HR 102. BP 201/98 on arrival. Cardene started per order. BP improved to 167/88.
[2025-06-16] MEDS: NORVASC 5 MG PO (20:01)
--- NOTE | 2025-06-16 21:37 | PTCARENOTE ---
Pt is Aox3, VSS, Vpaced 100% on monitor. Cardene gtt per protocol. C/o lower back pain, PRN Tylenol given.
[2025-06-16] MEDS: CRESTOR 10 MG PO (22:07)
[2025-06-16] MEDS: MELATONIN 3 MG PO ×2 (22:07)
[2025-06-16] MEDS: ASPIR LOW (ENTERIC COATED) 81 MG PO (22:07)
[2025-06-17] VITALS (39 sets, daily range): BP systolic 112–164; BP diastolic 57–111; BMI 21.3
[2025-06-17] MEDS: ZOSYN 50 IV ×2 (00:05→05:37)
[2025-06-17] MEDS: ROXICODONE 5 MG PO ×2 (00:05→21:17)
--- NOTE | 2025-06-17 01:46 | PTCARENOTE ---
Pt C/o headache, pt on cardene gtt, BP within parameters. NIH 0. PRN oxycodone given for lower back pain and headache.
[2025-06-17 03:44] LABS: Hematocrit 40.3 % (37.0-47.0); Hemoglobin 14.0 g/dL (12.0-16.0); Mean Corp Hgb Conc. 34.7 g/dL (33.0-37.0); Mean Corpuscular Volume 96.4 fL (81.0-99.0); Nucleated Red Blood Cells % 0 %; Platelet Count 278 10^3/uL (130-400); Red Cell Dist. Width 12.5 % (11.5-14.5)
[2025-06-17 04:08] LABS: ALT (SGPT) < 10 U/L (0-35); AST (SGOT) 23 U/L (14-36); Albumin 4.3 g/dl (3.5-5.0); Alkaline Phosphatase 98 U/L (38-126); Blood Urea Nitrogen 30 mg/dl (7-17); Calcium 9.3 mg/dl (8.4-10.2); Carbon Dioxide 19 mmol/L (22-30); Chloride 104 mmol/L (98-107); Estimated Creatinine Clearance 40 ml/min; Glucose 129 mg/dl (70-99); Potassium 3.2 mmol/L (3.5-5.1); Sodium 135 mmol/L (135-145); Total Protein 7.2 g/dl (6.3-8.2); eGFR 57.66
[2025-06-17 04:20] LABS: INR 1.01; PT 13.6 Sec (11.4-14.6)
[2025-06-17 04:21] LABS: APTT 30.9 Sec (23.4-35.0); Magnesium 2.4 mg/dl (1.6-2.3)
[2025-06-17] MEDS: KCL 270 MEQ IV (05:37)
[2025-06-17] MEDS: HEPARIN 5000 UNITS SC ×2 (08:06→19:29)
[2025-06-17] MEDS: NORVASC 5 MG PO ×2 (08:07→19:29)
[2025-06-17] MEDS: TYLENOL 650 MG PO ×3 (08:07→16:13)
[2025-06-17] MEDS: COREG 6.25 MG PO ×2 (08:09→19:29)
--- NOTE | 2025-06-17 08:10 | PTCARENOTE ---
Handoff assessment. Right arm #20g protective catheters x2 flushed and patent. She is awake and alert. Voiding in [place]. Episode of loose green bilious stool when she thought she was passing gas. Lungs CTA. +hyperactive BSX4. Anus excoriated,
[place] intact. She was informed of the plan of care regarding antibiotics and tapering Cardene drip. Safe environment maintained.
--- NOTE | 2025-06-17 08:26 | CON.INTV ---
Consultation
Consultation Request
Date/Time Consultation Requested: 06/16/2025 - 170
Date/Time Consultation Performed: 06/17/2025 - 821
Requesting Provider: Dr. Ramirez
Performing Provider: Dr. Edwards
Reason for Consultation: HTN crisis
Medical History
-
Chief Complaint: Weakness, trouble urinating and loose BM
History of Present Illness:
80-year-old female with a past medical history of A-fib, CKD, s/p PPM, DM type II, much regurgitation, CAD, chronic HFpEF, hypertension, hypercholesterolemia, history of insomnia, history of Lyme disease, history of SVT, diverticulosis, history of
migraine headaches + history of pneumonia who presents with generalized weakness, trouble urinating and loose stool. Weakness + abdominal discomfort has been ongoing for 5 days. She has had worsening fatigue so much that she can barely get out of
bed. She feels urinary urgency with little urinary output. Also endorses occasional abnormal bowel movements with loose stool. Initial vitals in the ER showed BP 176/106, pulse rate 94, temperature 97.8 �F, respiratory rate 20, and saturating 98%
on room air. Initial labs showed leukocytosis to 15.2, creatinine 1.2, CK 26, urinalysis with +3 leukocyte esterase and 16�20 urine WBC with many urine bacteria and +1 ketones, and COVID-19 antigen negative. Urine culture collected and has grown
Klebsiella pneumoniae. CT abdomen/pelvis obtained on 06/14/2025 showing mild acute infectious pancolitis with severe sigmoid colon diverticulosis, and mild intrahepatic + extrahepatic biliary dilatation with mild biliary wall hyperenhancement
suggesting cholangitis. In the ER patient was given Zosyn, Tylenol and 500 cc bolus of NS 0.9%. Patient was admitted to telemetry for further management. While on the floor she developed worsening hypertension, and continue to have abdominal
discomfort; GI consulted, and MRCP ordered. SBP was as high as 212/100 mmHg, and patient was transferred to the ICU on 06/16/2025 for Cardene drip. Name Plate Stamper services consulted for additional management/recommendations.
Patient was seen and evaluated this morning. Resting in bed comfortably. Weaned off Cardene drip earlier this morning at around 9:10 AM. Heart rate 91, BP 150/69, saturating 95%. Currently does not endorse abdominal discomfort. Patient's son,
Neal, present at bedside and all questions were answered. Patient has a migraine headache (which she has a history of), and also feels nauseous � no vomiting. She has loose stools which seem to have increased after receiving magnesium citrate
yesterday.
PMHx: A-fib, hypercholesterolemia, insomnia, hypertension, chronic HFpEF, CAD, DM type II, mitral regurgitation, history of Lyme disease, varicose veins s/p RLE surgery, history of migraine headaches, history of SVT, diverticulosis, history of
pneumonia, s/p PPM, CKD, spinal stenosis (L4-5)
PSHx: Cardiac pacemaker (05/07/2009), history of , right TKA (2014), umbilical hernia repair, robotic assisted laparoscopic GINNY right inguinal hernia with mesh, right posterior rectus intraparietal hernia, recurrent ventral/umbilical hernia
(10/12/2021)
Past Medical History
Past Medical History: Other (Above as per HPI)
Past Surgical History: Other (Above as per HPI)
Social History
Tobacco: Former Smoker (Quit smoking at age 32)
Alcohol: Daily (5-6 gin & tonic drinks per day)
Drug: None
Employment: Retired
Allergies / Home Medications
Allergies
Allergy/AdvReac Type Severity Reaction Status Date / Time
doxycycline Allergy Nausea Verified 06/14/25 20:15
fluticasone (From Flonase) Allergy Unknown Verified 06/14/25 10:29
Home Medications
�Medication �Instructions �Recorded �Confirmed �Last Taken �Type
carvedilol 6.25 mg tablet 6.25 mg PO BID Blood pressure 10/07/15 06/14/25 06/13/25 History
losartan 50 mg tablet 100 mg PO DAILY Blood pressure 10/07/15 06/14/25 06/13/25 History
rosuvastatin 10 mg tablet 10 mg PO HS High cholesterol 10/07/15 06/14/25 06/13/25 History
aspirin 81 mg tablet,delayed 81 mg PO HS Blood clot 04/26/22 06/14/25 06/13/25 History
release prevention/tx
oxycodone 10 mg tablet 10 mg PO Q6HPRN PRN severe pains 06/14/25 06/14/25 7 Days Ago History
~06/07/25
Review of Systems
-
History Source: Patient
All other systems: Negative unless noted
Vitals / Labs / Diagnostic Testing
Vital Signs
Temp Pulse Resp BP Pulse Ox
98.4 F 99 14 120/81 97
06/17/25 07:16 06/17/25 08:27 06/17/25 08:00 06/17/25 08:27 06/17/25 08:00
Lab Data
06/17/25 03:14
Laboratory Results
06/17/25
03:56
PT 13.6
INR 1.01
APTT 30.9
Microbiology
06/14/25 19:15 Feces/Stool Salmonella/Shigella Culture - Final
No Salmonella, Shigella, Aeromonas or Plesiomonas species
isolated.
06/14/25 19:15 Feces/Stool Campylobacter Culture - Final
No Campylobacter species isolated.
06/14/25 19:15 Feces/Stool Shiga Toxin Test - Final
No E. coli Shiga Toxin 1 or 2 detected.
06/15/25 17:12 Blood/Venous Blood Culture - Preliminary
No Growth in 24 hours- Final report to follow
06/15/25 15:39 Blood/Venous Blood Culture - Preliminary
No Growth in 24 hours- Final report to follow
06/14/25 13:57 Urine Urine Culture - Final
Klebsiella pneumoniae
06/14/25 19:15 Feces/Stool - Final
Negative for Norovirus GI and GII.
06/14/25 19:15 Feces/Stool C. difficile GDH Antigen & Toxins - Final
Negative for toxigenic C.difficile
Diagnostic Testing:
Physical Exam
-
HEENT: Normocephalic and Anicteric
Cardiovascular: Peripheral Edema (negative) and Other (Normal heart rate; V paced)
Respiratory: Wheeze (negative), Rales (negative), Rhonchi (negative) and Non-Labored Respirations
GI: Soft, Non Distended, Non Tender and Normal Bowel Sounds
Neurology: Awake, Alert, Oriented, Tremors (negative) and Other
Skin: Warm and Dry
General: Respiratory Distress (negative), Comfortable, Fever (negative), Chills (negative) and Other (Elderly woman, in NAD, appears fatigued)
Assessment
-
Assessment: 80-year-old female with a past medical history of A-fib, CKD, s/p PPM, DM type II, much regurgitation, CAD, chronic HFpEF, hypertension, hypercholesterolemia, history of insomnia, history of Lyme disease, history of SVT, diverticulosis,
history of migraine headaches + history of pneumonia who presents with generalized weakness, trouble urinating and loose stool. Weakness + abdominal discomfort has been ongoing for 5 days. She has had worsening fatigue so much that she can barely
get out of bed. She feels urinary urgency with little urinary output. Also endorses occasional abnormal bowel movements with loose stool. Initial vitals in the ER showed BP 176/106, pulse rate 94, temperature 97.8 �F, respiratory rate 20, and
saturating 98% on room air. Initial labs showed leukocytosis to 15.2, creatinine 1.2, CK 26, urinalysis with +3 leukocyte esterase and 16�20 urine WBC with many urine bacteria and +1 ketones, and COVID-19 antigen negative. Urine culture collected
and has grown Klebsiella pneumoniae. CT abdomen/pelvis obtained on 06/14/2025 showing mild acute infectious pancolitis with severe sigmoid colon diverticulosis, and mild intrahepatic + extrahepatic biliary dilatation with mild biliary wall
hyperenhancement suggesting cholangitis. In the ER patient was given Zosyn, Tylenol and 500 cc bolus of NS 0.9%. Patient was admitted to telemetry for further management. While on the floor she developed worsening hypertension, and continue to
have abdominal discomfort; GI consulted, and MRCP ordered. SBP was as high as 212/100 mmHg, and patient was transferred to the ICU on 06/16/2025 for Cardene drip. Name Plate Stamper services consulted for additional management/recommendations.
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
diverticulosis, history of pneumonia, s/p PPM, CKD, spinal stenosis (L4-5)
Impression:
#Hypertensive crisis requiring Cardene drip - crisis now resolved
#Alcohol use disorder
#Sepsis due to UTI (UCx grew Klebsiella pneumoniae on 06/14/2025) in the setting of acute pancolitis
#Abnormal CT A/P showing mild intrahepatic/extrahepatic biliary dilatation with mild biliary wall hyperenhancement suggestive of cholangitis (low clinical likelihood)
#CKD stage 3
#History of Lyme disease
#Chronic HFpEF
#DM type II
#Migraine headaches
#History of SVT
#History of A-fib
#Insomnia
#Spinal stenosis (L4-5)
Plan:
- Reduce SBP by 25% in the first 24 hours
- Her SBP was as high as 212/100 mmHg at 3 AM on 06/16/2025 --> this was only one time point and her SBP was on average was around 190-200mmHg; would lower her SBP today to approx 150mmHg
- Tomorrow would lower SBP to target <140mmHg
- She has remained off cardene gtt since this AM and BP has remained stable
- DC cardene gtt now, and continue prn hydralazine and prn labatelol
- Maintain MAP>65, avoid hypotension given the above to avoid hypoperfusion (KAREN, ischemic hepatopathy, etc)
- Maintain SpO2 >90-94%; currently on room air, breathing comfortably and saturating 96%
- prn nebulized bronchodilators - not currently bronchospastic
- Pt drinks alcohol - 3 cocktails per day reported by the patient however reports by hospitalist show that she drinks more than 5-6 drinks per day of gin & tonic
- MSAS will now be ordered
- Thiamine and folate now being ordered
- Patient currently does not appear tremulous or appear to be in active alcoholic withdrawal
- Continue with antibiotics to treat UTI + pancolitis
- ID consulted to antibiotics narrowed today from Zosyn to Unasyn
- Defer duration of ABx to ID
- Follow-up blood cultures + stool cultures; stool negative for norovirus and negative for C. difficile
- Given the patient's abdominal discomfort with intra/extrahepatic biliary dilatation, MRCP has been ordered. I have very low clinical suspicion for cholangitis given she has remained afebrile and I do not appreciate any jaundice appearance
- Unfortunately MRCP cannot be performed as her pacemaker is not apparently MRI compatible
- GI continues to be on board, recommendations appreciated
- Initially her LFTs showed slightly elevated ALP + D bili; ALP is now normal as well as her T. bili; re-check D Bili tomorrow
- Replete electrolytes with K>4, Mg>2
- Maintain euglycemia with goal BG 140-180; HbA1c: 5.8 on 06/15/2025
- Trend H/H and transfuse if needed to keep Hb>7-8g/dL; keep plt>20k, unless there is concern for bleeding then keep plt>50k
- Given her chronic pain + fatigue, Lyme serology has been ordered and is pending
- Incentive spirometer encouraged 10x per hour for at least 4 hrs a day
- DVT ppx: HSQ
Patient is stable for downgrade out of ICU to telemetry. No additional recommendations at this time. Name Plate Stamper/Pulmonary service will now sign off. Thank you for allowing us to be involved in the care of this patient. Please reconsult if there
are any additional questions/concerns, or if patient's respiratory status deteriorates.
Data:
CT abdomen/pelvis with IV contrast 06/14/2025:
1. MILD ACUTE INFECTIOUS PANCOLITIS.
2. Severe diverticulosis in the sigmoid colon.
3. Severe calcific atherosclerotic plaque in the abdominal aorta.
4. Severe bilateral renal scarring.
5. Moderate distention of the left renal pelvis (possibly secondary to a partial obstruction of the left ureteropelvic junction).
6. Mild intrahepatic and extrahepatic biliary dilatation with mild biliary wall hyperenhancement suggesting cholangitis.
7. Cholelithiasis without evidence for acute cholecystitis.
8. Multilevel vertebral body endplate fractures in the lower thoracic and upper lumbar spine.
9. Severe discogenic degenerative disease and facet joint arthrosis in the lower lumbar spine.
Total time spent today was 58 minutes for this encounter. Time includes reviewing laboratory test/imaging results, reviewing pertinent medical records, obtaining and reviewing medical history, performing an appropriate exam, ordering medications,
tests and procedures. Time also includes documentation of this encounter, coordinating patient care and communicating with other healthcare professionals. Total time does not include separately billed tests performed on this date of service.
[2025-06-17] MEDS: COZAAR 100 MG PO (08:27)
--- NOTE | 2025-06-17 08:44 | CON.ID ---
Consultation
-
Date/Time Consultation Requested: 06/16/2025 1009
Date/Time Consultation Performed: 06/17/2025 0840
Requesting Provider: Dr. Ramirez
Performing Provider: Dr. Yenug
Reason for Consultation: Leukocytosis
Chief Complaint / Past History
History of Present Illness
Hannah Lentz is a 80-year-old female being evaluated at the request of Dr. Anderson in regards to leukocytosis. History is obtained from chart review, along with patient interview.
The patient initially presented to the emergency room at [facility] on 06/14 with a chief complaint of weakness. According to history, the patient has had approximately 4 days of progressive generalized weakness, along with lower abdominal
discomfort. Weakness progressed to the point where she could not get out of bed. She also reported urinary frequency over the prior several days, without producing much urine. No history of fevers or chills.
In the ER, workup revealed leukocytosis, and CT of the abdomen and pelvis was suggestive of pancolitis. The patient was started on empiric antibiotics, and Infectious Diseases assessed, and upon further antimicrobial management.
The patient reports that since she has had been dealing with episodes of fecal incontinence when urinating. Over the past week, she denies any fevers or pain. She denies any nausea or vomiting. She clarifies that the 'diarrhea' is some
loose stool that leaks out when she is urinating. She denies any dysuria. She denies any hematuria. She denies any blood in the stool.
Past History
Additional Past Medical History:
Atrial fibrillation
CKD
DM
CAD
CHF
HTN
Peptic ulcer disease
Additional Past Surgical History:
Right TKA
PPM placement
Umbilical hernia repair
Allergy History:
doxycycline Allergy (Verified 06/14/25 20:15)
Nausea
fluticasone (From Flonase) Allergy (Verified 06/14/25 10:29)
Unknown
Medications Reviewed: Yes
Current Antibiotics:
Zosyn 2.25 gm IV q.6 hours (day #3)
Social History
Tobacco: Former Smoker
Alcohol: None
Drug: None
Personal:
Living: Alone
Employment: Retired
Family History
Family History: Not Pertinent
Review of Systems
Vital Signs
Temp Pulse Resp BP Pulse Ox
98.4 F 99 14 120/81 97
06/17/25 07:16 06/17/25 08:27 06/17/25 08:00 06/17/25 08:27 06/17/25 08:00
Physical Exam
Physical Exam
Constitutional: No Acute Distress, Comfortable and Non-toxic
Eyes: No Conjunctival Hemorrhage and Sclera Anicteric
Oral: No Thrush and No Ulcers
Cardiovascular: Regular Rate and S1/S2; Negative S3/S4 or Murmur
Pulmonary: Non Labored; Negative Wheezes, Rales or Rhonchi
Gastrointestinal: Soft, Tender (Diffusely, although more so on the left side), Non Distended, Normal Bowel Sounds, No Rebound and No Guarding
Genito-Urinary: Negative Nelson or Suprapubic Tenderness
Extremities: Negative Edema, Cyanosis or Erythema
Neurological: Awake and Alert
Psychological: Calm
Lab / Diagnostic Study Results
06/17/25 03:14
Abs Immat Gran (auto) 0.1 10^3/uL (0-0.05) H 06/17/25 03:14
Absolute Neuts (auto) 14.1 10^3/uL (1.4-6.5) H 06/17/25 03:14
Absolute Lymphs (auto) 1.7 10^3/uL (1.2-3.4) 06/17/25 03:14
Absolute Monos (auto) 1.5 10^3/uL (0.1-0.6) H 06/17/25 03:14
Absolute Basos (auto) 0.0 10^3/uL (0-0.2) 06/17/25 03:14
Immature Gran % 0.5 % (0-0.5) 06/17/25 03:14
Neutrophils % 80.9 % (42.2-75.2) H 06/17/25 03:14
Lymphocytes % 9.7 % (20.5-51.1) L 06/17/25 03:14
Monocytes % 8.8 % (1.7-9.3) 06/17/25 03:14
Eosinophils % 0.0 % (0-6) 06/17/25 03:14
Basophils % 0.1 % (0-2) 06/17/25 03:14
PT 13.6 Sec (11.4-14.6) 06/17/25 03:56
INR 1.01 06/17/25 03:56
Lactic Acid 1.0 mmol/L (0.7-2.0) 06/15/25 15:39
Ur Squamous Epith Cells /LPF (Few) 06/14/25 13:57
Microbiology Results
Micro:
06/15/25 17:12 Blood Culture - Preliminary
Blood/Venous No Growth in 24 hours- Final report to follow
06/15/25 15:39 Blood Culture - Preliminary
Blood/Venous No Growth in 24 hours- Final report to follow
06/14/25 19:15 Salmonella/Shigella Culture - Preliminary
Feces/Stool Culture in Progress
Campylobacter Culture - Preliminary
Culture in Progress
Shiga Toxin Test - Pending
06/14/25 13:57 Urine Culture - Final
Urine Klebsiella pneumoniae
06/14/25 19:15 - Final
Feces/Stool Negative for Norovirus GI and GII.
06/14/25 19:15 C. difficile GDH Antigen & Toxins - Final
Feces/Stool Negative for toxigenic C.difficile
Imaging:
06/14/2025 CT abdomen/pelvis with contrast: mild acute pancolitis. Severe diverticulosis in the sigmoid colon. Severe calcific atherosclerotic plaque in the abdominal aorta. Severe bilateral renal scarring. Moderate distention of the left renal
pelvis (possibly secondary to a partial obstruction of the left ureteropelvic junction). Mild intrahepatic and extrahepatic biliary dilatation with mild biliary wall hyperenhancement. Cholelithiasis without evidence for acute cholecystitis.
Multilevel vertebral body endplate fractures in the lower thoracic and upper lumbar spine. Please see full dictation for additional detail.
Assessment / Plan
Leukocytosis
Abdominal discomfort
Bacteriuria; suspected complicated urinary tract infection
Atrial fibrillation
CKD
DM
CAD
CHF
HTN
Peptic ulcer disease
Recommendations:
Continue with empiric antibiotics, although narrow to Unasyn.
Monitor white count and temperature curve.
Repeat blood cultures for temperature greater than 101 degrees.
Await MRCP.
--- NOTE | 2025-06-17 09:15 | W.PN.GI.CBS2 ---
Today's Communication / Plan
-
Adv to low residue diet
LFTs stable
Cw bowel regimen
She can FU with me OP basis. GI will sign off please call for ?
Assessment / Plan
-
Hannah is a 77yo W lives alone with h/o DM, CAD and chroinc pain on opioids who presents for abd bloating and constipation. She also has fecal genia kage upon coughing or urination dependent on pad daily for past 6 mo. She denies diarrhea. She
denies blood in stools. Vitals stable. exam obese abdomen, NTTP, no guarding or rebound Labs reviewed WBC mildly elevated. CTAP with IV no oral contrast with pancolitis, tics, mild intra and extrahepatic ductal dilation. gallstones.
Impression
- Hypertensive emergency and stroke 06/16
- Constipation
- Pelvic floor dysfunction with fecal leakage pad dependent
- Abnormal CT scan with thickening of pancolitis and ? biliary dilation
Mild biliary dilation is often seen with chronic opioid use and increased age. LFTs normal so low suspicion for cholangitis
No diarrhea at all since admission until after laxatives given 06/16 History not consistent with infectious colitis
- Chronic opioid use
- DM
- Hyperlipidemia
- Remote h/o PUD
- Pacemaker
- Umbilical hernia repair
- H/o back pain
Recommendation
- Unable to get MRI but given LFTs have been normal low suspicion of biliary obstruction
- Abd pain improved significantly
- C/w miralax
- Adv to low residue diet
- Can FU with me OP to further workup fecal leakage and pelvic floor dysfunction
No new GI recs. At this juncture GI will sign off please call for ?
Subjective
Subjective
Date of Service: June 17, 2025
Acute events overnight with transfer to ICU for hypertension and stroke. She had BMs and abd pain improved now down to 3/10 in nature.
Objective
Data Reviewed
Laboratory Data:
Laboratory Results
06/17/25 03:14
Laboratory Results
PT 13.6 Sec (11.4-14.6) 06/17/25 03:56
INR 1.01 06/17/25 03:56
APTT 30.9 Sec (23.4-35.0) 06/17/25 03:56
Phosphorus 3.3 mg/dl (2.5-4.5) 06/17/25 03:56
Magnesium 2.4 mg/dl (1.6-2.3) H 06/17/25 03:56
Total Bilirubin 0.9 mg/dl (0.2-1.3) 06/17/25 03:14
AST 23 U/L (14-36) 06/17/25 03:14
ALT < 10 U/L (0-35) 06/17/25 03:14
Alkaline Phosphatase 98 U/L (38-126) 06/17/25 03:14
Vital Signs and I&O:
Vital Signs
Temp Pulse Resp BP Pulse Ox
98.4 F 99 14 120/81 97
06/17/25 07:16 06/17/25 08:27 06/17/25 08:00 06/17/25 08:27 06/17/25 08:00
I&O
06/16/25 06/17/25 06/18/25
06:59 06:59 06:59
Intake Total 125.0 / 125.0
Output Total 200 / 200
Balance -75.0 / -75.0
Physical Exam
Physical Exam
GEN: No acute distress, conversant, pleasant
HEENT: anicteric, extraocular movements intact, clear oropharynx without exudates
GI: soft, obese mildy-distended, not tender to palpation, normal active bowel sounds, no hepatosplenomegaly
EXT: warm, well perfused, trace edema bilaterally
NEURO: AAOx3, non-focal
--- NOTE | 2025-06-17 11:39 | PTCARENOTE ---
TT'd Dr. Edwards and Dr. Mock regarding pt's continued symptoms of H/A associated with nausea. Too soon for Tylenol. Pt NPO for MRCP, and drinks caffeine daily. Awaiting orders. Did consider Oxycodone but given nausea I am apprehensive.
[2025-06-17] MEDS: FOLVITE 1 MG PO (12:07)
[2025-06-17] MEDS: THIAMINE INJECTION 200 MG IV ×2 (12:07→19:29)
[2025-06-17] MEDS: UNASYN IV ×3 (12:08→23:10)
[2025-06-17 13:19] LABS: Blood Urea Nitrogen 28 mg/dl (7-17); Calcium 8.4 mg/dl (8.4-10.2); Carbon Dioxide 18 mmol/L (22-30); Chloride 106 mmol/L (98-107); Estimated Creatinine Clearance 50 ml/min; Glucose 123 mg/dl (70-99); Potassium 3.6 mmol/L (3.5-5.1); Sodium 139 mmol/L (135-145); eGFR > 60.00
--- NOTE | 2025-06-17 13:54 | W.PN.HOSP.TC ---
Today's Communication/Plan
-
cancel MRI
son updated
resume diet
continue to treat UTI
Assessment / Plan
Assessment / Plan
Assessment/Plan
80-year-old female with history CHF, CAD with pacemaker/defibrillator, hypertension, hyperlipidemia, and diabetes mellitus who presented to the emergency department with 5 days of generalized weakness and lower abdominal discomfort. She had been
extremely fatigued and generally weak, feeling that she could not get out of bed. She reported experiencing urinary frequency and urgency over the few days prior to arrival as well. She denied dysuria or hematuria. She also reported a few episodes
of loose stools although she does occasionally have abnormal bowel movements. At the time of admission, patient denied any fever, chills, cough, chest pain, shortness of breath, back pain, lightheadedness/dizziness.
#Presentation with Generalized Weakness, Fatigue and Lower Abdominal Discomfort, few episodes of loose stools
#Acute infectious pancolitis
#Severe diverticulosis in the sigmoid colon
#Mild intrahepatic and extrahepatic biliary dilatation with mild biliary wall hyperenhancement suggesting cholangitis
#Cholelithiasis
#Leukocytosis
- Continue IV antibiotics with Zosyn -- consulted ID given worsening leukocytosis and immature granulocytes despite Zosyn. Appreciate ID.
- C. diff negative. Norovirus negative.
- NPO except medication, ice chips, sips of clears
- IV fluids stopped given high blood pressure, can consider resuming at a lower dose later say at 50 cc/hr
- MCRP has been ordered, but can't be done due to PPM not MRI compatible, as per Carly Aly Dr. Do made aware
- GI consult given cholangitis/dilated biliary ducts on CT imaging
- Trend CMP
- Appreciate GI: constipation and chronic opioid use are concerns, Mag citrate 10oz cleanse today; Adv to low residue diet afterwards; Miralax going forward
- GI feels infectious colitis is not supported by history and cholangitis is less likely (even though seen on imaging) but follow-up MRCP. Still continue antibiotics in the setting of leukocytosis and concern
for infection -- patient still at least has a UTI (see below)
-Per GI recommendations: Mag citrate 10oz cleanse today; Adv to low residue diet afterwards; Miralax going forward
#Significant Headache
-Could be from high blood pressure, cholangitis, colitis, antibiotics. Possibly due to caffeine withdrawal
-Checked CT Head (see below)
#Hypertensive Emergency
#Hypertension
- Despite treatment of patient's blood pressure with the medications below, her blood pressure remains very high with systolic 180s+ mmHg, patient has severe headache, discussed with photoengraving finisher and
transfer to ICU
- Continue home Coreg
- Continue losartan
- Added Amlodipine
- PRN Hydralazine
- Off Cardene Drip since 0906/17
#Lacunar Stroke on CT Head 06/16/25
- Patient's neurological exam as of 06/16/25 was normal, but CT Head was done given severe headache in the setting if high blood pressure
- CT Head showed a stroke -- uncertain whether acute or chronic -- and in the setting of very high blood pressure -- consulted neurology
- I communicated with Dr. Haro (neurologist) via [place] [employer], we discussed patient's CT Head findings from 06/16/25, and he agreed that patient should be treated as hypertensive emergency at this time with
Cardene Drip given
- Appreciate neurology
#Non Anion Gap Metabolic Acidosis
- Could be from normal saline IV fluids, diarrhea
- Stopped previously given normal saline IV fluids
- LR was subsequently given, bicarb improved
#Symptoms of urinary frequency and urinary urgency prior to arrival
#Oliguria prior to arrival
#Klebsiella Pneumoniae UTI
- IV Zosyn changed to Unasyn
- Urine culture grew Klebsiella, sensitive to all except Amoxicillin
#Paroxysmal Atrial Fibrillation
- cont WET PROCESS MILLER Coreg with hold parameter
- not on AC likely due to recent peptic ulcer disease
#History of Peptic Ulcer Disease in 2021
- Received red blood cell transfusions around the time of having peptic ulcer disease
- Resume PPI
#Chronic HFpEF
#History of cardiomyopathy status post Bi-V ICD
-Continue home Coreg and Losartan
#Chronic Kidney Disease Stage 3
- Monitor BMP
#Hyperlipidemia
- Continue Rosuvastatin
#Diabetes Mellitus
- ISS low
#History of hospital-acquired pneumonia with methicillin-sensitive Staph aureus in 2021
#History of Right Knee Surgery
#History of Compression Fracture
#Severe calcific atherosclerotic plaque in the abdominal aorta.
#Severe bilateral renal scarring.
#Moderate distention of the left renal pelvis (possibly secondary to a partial obstruction of the left ureteropelvic junction).
#Multilevel vertebral body endplate fractures in the lower thoracic and upper lumbar spine.
#Severe discogenic degenerative disease and facet joint arthrosis in the lower lumbar spine.
DVT Prophylaxis: Heparin subq
Code Status: Full code
Hypertensive emergency is a high risk encounter
reviewed with sonNeal 06/17
Total Critical Care Time 55 minutes. I was immediately available to the patient and staff. I personally examined, reviewed labs, diagnostic images/reports, interpretations, treatment plans, discussed patient care with other providers and family
or caregivers (if patient is unable to make decisions), entered orders as appropriate and documented the medical record.
Anticipated Discharge: > 48 hours
Subjective/Interval History
-
Date of Service: June 17, 2025
Awake, alert, answering basic questions
Objective Data
-
Labs:
Laboratory Results
06/17/25 06/17/25 06/17/25
03:14 03:56 12:42
WBC 17.4 H
Hgb 14.0
Hct 40.3
Plt Count 278
PT 13.6
INR 1.01
APTT 30.9
Sodium 135 139
Potassium 3.2 L 3.6
Chloride 104 106
Carbon Dioxide 19 L 18 L
BUN 30 H 28 H
Creatinine 1.0 0.8
Glucose 129 H 123 H
Calcium 9.3 8.4
Total Bilirubin 0.9
AST 23
ALT < 10
Alkaline Phosphatase 98
Vital Signs:
Vital Signs
Temp Pulse Resp BP Pulse Ox
98.1 F 94 19 149/71 96
06/17/25 11:30 06/17/25 11:15 06/17/25 11:15 06/17/25 11:00 06/17/25 11:15
I&O
06/16/25 06/17/25 06/18/25
06:59 06:59 06:59
Intake Total 125.0 / 205.0 460.0 / 460.0
Output Total 200 / 200
Balance -75.0 / 5.0 460.0 / 460.0
Review of Systems
-
History Source: Patient, Family (son, Neal), Physician (reviewed with Dr. Deepali Clemente) and Coordinated Provider (DAMIEN Hou)
Constitutional: Denies Fever
EENT: Reports No Symptoms Reported
Respiratory: Reports No Symptoms
Cardiac: Reports No Symptoms
Abdomen/GI: Reports Abdominal Pain (mild)
Genitourinary: Reports Frequency; Denies Dysuria
Physical Exam
-
General: Well Developed, Well Nourished and No Apparent Distress
HEENT: Normocephalic, Atraumatic and Moist Mucous Membranes
Respiratory: Clear to Auscultation; Negative Wheezes, Rales or Rhonchi
Cardiac: Regular Rhythm and S1/S2
GI: Soft and Tender (mild lower abdomen)
Genito-urinary: No Costovertebral Tender
Skin: Warm and Dry
Neuro: Awake, Alert and Oriented
--- NOTE | 2025-06-17 14:14 | PTCARENOTE ---
Notified by Dr. Mock that MRCP cancelled due to PPM not MRI compatible.
--- NOTE | 2025-06-17 14:52 | PTCARENOTE ---
HR 148 v-paced, pt standing at the bedside walking to the BR. Resolved once she was flat in the bed. She voided, and had a small BM.
[2025-06-17] MEDS: KLOR-CON 40 MEQ PO (15:10)
--- NOTE | 2025-06-17 15:46 | CM ---
Ongoing treatment for UTI. IV/AB. Discharge POC: Anticipate home with no needs.
[2025-06-17] MEDS: TRANDATE 5 MG IV (16:56)
--- NOTE | 2025-06-17 19:41 | PTCARENOTE ---
Pt's son Jb updated that his mother was downgraded to Telemetry, and may or may not be transferred to another room. He was instructed to call the hospital before he visits to verify her location.
[2025-06-17] MEDS: CRESTOR 10 MG PO (21:17)
[2025-06-17] MEDS: MELATONIN 3 MG PO (21:17)
[2025-06-17] MEDS: ASPIR LOW (ENTERIC COATED) 81 MG PO (21:17)
--- NOTE | 2025-06-17 22:02 | PTCARENOTE ---
Pt received start of shift, HR 100% V-paced on telemetry. Neuro intact. MSAS - nausea w/o vomiting and increased HR. Oriented. Voiding in bedpan
[2025-06-18] VITALS (21 sets, daily range): BP systolic 122–175; BP diastolic 68–96; BMI 21.4; BMI 21.5
[2025-06-18] MEDS: TRANDATE 5 MG IV ×2 (00:08→05:25)
--- NOTE | 2025-06-18 00:45 | PTCARENOTE ---
Pt using call parra appropriately for assistance voiding in bedpan. Labetalol PRN administered - see MAR.
[2025-06-18] MEDS: TYLENOL 650 MG PO ×4 (01:10→16:46)
--- NOTE | 2025-06-18 02:24 | DOWNTIME ---
There was a [employer] Career Resource Specialist Downtime on 06/18/2025 from 0100 to 06/18/2025 at 0220. Downtime documentation of patient's care, including medication administrations, has been reconciled in the electronic record per guidelines. Refer to the
patient's paper chart under the miscellaneous tab to see printed paper medication records and downtime forms.
[2025-06-18 04:32] LABS: Hematocrit 40.5 % (37.0-47.0); Hemoglobin 13.9 g/dL (12.0-16.0); Mean Corp Hgb Conc. 34.3 g/dL (33.0-37.0); Mean Corpuscular Volume 98.1 fL (81.0-99.0); Nucleated Red Blood Cells % 0 %; Platelet Count 221 10^3/uL (130-400); Red Cell Dist. Width 12.8 % (11.5-14.5)
[2025-06-18 05:00] LABS: ALT (SGPT) < 10 U/L (0-35); AST (SGOT) 19 U/L (14-36); Albumin 3.8 g/dl (3.5-5.0); Alkaline Phosphatase 92 U/L (38-126); Blood Urea Nitrogen 24 mg/dl (7-17); Calcium 8.5 mg/dl (8.4-10.2); Carbon Dioxide 19 mmol/L (22-30); Chloride 107 mmol/L (98-107); Estimated Creatinine Clearance 50 ml/min; Glucose 84 mg/dl (70-99); Magnesium 2.1 mg/dl (1.6-2.3); Potassium 3.8 mmol/L (3.5-5.1); Sodium 136 mmol/L (135-145); Total Protein 6.6 g/dl (6.3-8.2); eGFR > 60.00
[2025-06-18] MEDS: UNASYN IV ×4 (05:27→23:14)
--- NOTE | 2025-06-18 08:30 | PTCARENOTE ---
Received pt right side lying. She immediately turned over when RN entered the room. She immediately c/o headache and that it is now in her eyes. Right FA IV and right AC IV flushed and patent. +peripheral pulses. No edema. Lungs CTA, dim in the
bases due to poor inspiratory effort. +BSx4, c/o nausea still. Saltines provided. SHe was informed that she can ambulate to the w/PCT senior maintenance mechanic assistance. She was also encouraged to eat breakfast this morning. She complained about the food. I
informed her that her son can bring something for her to eat as well. Safe environment maintained.
[2025-06-18] MEDS: FOLVITE 1 MG PO (08:36)
[2025-06-18] MEDS: NORVASC 5 MG PO ×2 (08:36→20:00)
[2025-06-18] MEDS: COZAAR 100 MG PO (08:36)
[2025-06-18] MEDS: COREG 6.25 MG PO ×2 (08:36→20:00)
[2025-06-18] MEDS: THIAMINE INJECTION 200 MG IV ×2 (08:37→20:00)
[2025-06-18] MEDS: HEPARIN 5000 UNITS SC ×2 (08:37→20:01)
--- NOTE | 2025-06-18 09:09 | W.PN.ID1 ---
Date of Service
Date of Service: June 18, 2025
Today's Communication
Continue Unasyn for today.
Assessment / Plan
Leukocytosis
Abdominal discomfort
Bacteriuria; suspected complicated urinary tract infection
- Cultures with Klebsiella pneumoniae
Atrial fibrillation
CKD
DM
CAD
CHF
HTN
Peptic ulcer disease
Recommendations:
Continue with Unasyn.
Monitor white count and temperature curve.
Repeat blood cultures for temperature greater than 101 degrees.
����������������������������������������������������������
Chief Complaint
-: Leukocytosis and Bacteremia
Subjective / Review of Systems
Review of Systems: No Fever, No Chills and Abdominal Pain (Somewhat improved)
Vital Signs / Physical Exam
Vital Signs
Vital Signs
Temp Pulse Resp BP Pulse Ox
98.5 F 99 21 150/74 97
06/18/25 08:08 06/18/25 08:36 06/18/25 08:30 06/18/25 08:36 06/18/25 08:34
Physical Exam
Constitutional: No Acute Distress, Comfortable and Non-toxic
Eyes: Sclera Anicteric
Cardiovascular: S1/S2; Negative S3/S4
Pulmonary: Non Labored
Gastrointestinal: Soft, Non Tender, Non Distended, Normal Bowel Sounds, No Rebound and No Guarding
Genito-Urinary: Negative Nelson
Extremities: Negative Edema, Cyanosis or Erythema
Neurological: Awake and Alert
Psychological: Calm
Objective Data
Lab Data
Lab Results
06/18/25 04:17
06/18/25 04:17
PT 13.6 Sec (11.4-14.6) 06/17/25 03:56
INR 1.01 06/17/25 03:56
APTT 30.9 Sec (23.4-35.0) 06/17/25 03:56
Estimated Creat Clear 50 ml/min 06/18/25 04:17
Lactic Acid 1.0 mmol/L (0.7-2.0) 06/15/25 15:39
Total Bilirubin 0.8 mg/dl (0.2-1.3) 06/18/25 04:17
AST 19 U/L (14-36) 06/18/25 04:17
ALT < 10 U/L (0-35) 06/18/25 04:17
Alkaline Phosphatase 92 U/L (38-126) 06/18/25 04:17
Most recent labs reviewed.
Micro Results:
06/15/25 17:12 Blood Culture - Preliminary
Blood/Venous No Growth in 48 hours- Final report to follow
06/15/25 15:39 Blood Culture - Preliminary
Blood/Venous No Growth in 48 hours- Final report to follow
06/14/25 19:15 Salmonella/Shigella Culture - Final
Feces/Stool No Salmonella, Shigella, Aeromonas or Plesiomonas species
isolated.
Campylobacter Culture - Final
No Campylobacter species isolated.
Shiga Toxin Test - Final
No E. coli Shiga Toxin 1 or 2 detected.
06/14/25 13:57 Urine Culture - Final
Urine Klebsiella pneumoniae
06/14/25 19:15 - Final
Feces/Stool Negative for Norovirus GI and GII.
06/14/25 19:15 C. difficile GDH Antigen & Toxins - Final
Feces/Stool Negative for toxigenic C.difficile
Imaging:
06/14/2025 CT abdomen/pelvis with contrast: mild acute pancolitis. Severe diverticulosis in the sigmoid colon. Severe calcific atherosclerotic plaque in the abdominal aorta. Severe bilateral renal scarring. Moderate distention of the left renal
pelvis (possibly secondary to a partial obstruction of the left ureteropelvic junction). Mild intrahepatic and extrahepatic biliary dilatation with mild biliary wall hyperenhancement. Cholelithiasis without evidence for acute cholecystitis.
Multilevel vertebral body endplate fractures in the lower thoracic and upper lumbar spine. Please see full dictation for additional detail.
--- NOTE | 2025-06-18 09:51 | PTCARENOTE ---
Dr. Mock TT's regarding her nausea, poor appetite, and potassium 3.8.
--- NOTE | 2025-06-18 10:33 | PN.CDI ---
CDI
- -
CDI:
Physician Documentation Request
Admit Date: 06/14/25 19:41
Dear Doctor Nish,
05/29 Snuff Box Finisher consultation includes a diagnosis of sepsis.
'sepsis due to UTI ....in setting of acute pancolitis'
Patient has remained afebrile.
Heart rates documented 60s-131
Respiratory rates documented 13-33
Laboratory Tests
06/14/25 06/15/25 06/16/25
11:34 07:02 06:42
WBC 15.2 H 14.3 H 19.1 H
06/17/25 06/18/25
03:14 04:17
WBC 17.4 H 17.0 H
Please indicate in your progress notes if you are in agreement that the above diagnosis is valid for this patient:
____ - Sepsis is a valid diagnosis - please indicate if POA
____ - Sepsis is not a valid diagnosis for this patient
____ - Other
Sepsis
-Systemic manifestations of infection, with 2 or more SIRS criteria which include:
-Fever > 100.9��F or hypothermia < 96.8��F
-Leukocytosis WBC > 12,000 or leukopenia, WBC < 4,000, or > 10% bands
-Tachycardia- > 90 beats/minute
-Tachypnea- RR > 20 breaths/minute or PaCO2 < 32mmHg
Source: Merck Manual 2013
Use of terms such as suspected, likely, concern for, or probable are acceptable for a diagnosis that is being evaluated, monitored or treated as if it exists and can be coded in the inpatient setting, when documented at the time of discharge.
Thank you,
Maria Esther Pulido RN, BSN
CDI Specialist
tiger text
Please use your independent medical judgment in providing your response.
--- NOTE | 2025-06-18 10:46 | PN.CDI ---
CDI
- -
CDI:
Physician Documentation Request
Admit Date: 06/14/25 19:41
Dear Doctor Nish,
06/16 progress note states 'Cardene drip to be started in ICU... Significant headache.... hypertensive emergency'
06/16 Neuro note states 'agree with ICU for cardene gtt, this is typical appearing lacunar stroke...'
06/17 forensic pathologist consult 'Hypertensive crisis requiring Cardene drip...'
In an attempt to clarify potentially conflicting documentation please clarify the type of documented hypertension:
Hypertensive Emergency - B/P is severely elevated (systolic > or = to 180 or diastolic > or = to 110) but can occur at lower levels especially in patients who did not previously have high B/P. There is usually associated organ damage. Symptoms may
include: memory loss, LOC, CVA, IN, angina, renal failure, pulmonary edema. Generally requires more aggressive treatment and a hospitalization.
Hypertensive Crisis - an acute elevation in B/P that can lead to organ damage. Broad term that is further differentiated to include urgency or emergency based on presence of organ damage.
Other (please specify)
Use of terms such as suspected, likely, concern for, or probable (associated with a specific diagnosis that is being evaluated, monitored, or treated as if it exists) are acceptable and can be coded in the inpatient setting, when documented at the
time of discharge.
Thank you,
Maria Esther Pulido RN, BSN
CDI Specialist
tiger text
Please use your independent medical judgment in providing your response.
--- NOTE | 2025-06-18 10:48 | PTCARENOTE ---
Pt's son Jb informed me that he prescription bottle for Oxy is empty and she had an appointment with the back specialist tomorrow. He verbalized that he felt that she was taking too much Oxy and drinking more alcohol for her pain. Supportive care
provided and reiterated that I highly recommend abstinence from consuming alcohol intake especially if she is also taking Opiates. The alcohol and Opiate combined can impact her wellbeing and intermediate designer outcome.
[2025-06-18] MEDS: PROTONIX 40 MG PO (12:41)
[2025-06-18] MEDS: ROXICODONE 5 MG PO ×2 (12:44→19:07)
--- NOTE | 2025-06-18 15:14 | PTCARENOTE ---
Ambulating to the BR. Gait steady. She appears better and headache improved. She was encouraged to sit in a chair however she refused due to her chronic back condition. Safe environment maintained. Will continue to monitor.
--- NOTE | 2025-06-18 15:30 | PTCARENOTE ---
She called RN into room 'my Oxy is wearing off'. She was informed that it was too early for both Tylenol and Oxy. She was reassured that RN will bring in her medications when they are due.
--- NOTE | 2025-06-18 18:11 | TRANSFER ---
Report given to Zarina QUEZADA for room 408-1.Pt to be transported via W/C on tele.
--- NOTE | 2025-06-18 18:11 | W.PN.HOSP.TC ---
Today's Communication/Plan
-
GB US
transfer to tele
Assessment / Plan
Assessment / Plan
Assessment/Plan
80-year-old female with history CHF, CAD with pacemaker/defibrillator, hypertension, hyperlipidemia, and diabetes mellitus who presented to the emergency department with 5 days of generalized weakness and lower abdominal discomfort. She had been
extremely fatigued and generally weak, feeling that she could not get out of bed. She reported experiencing urinary frequency and urgency over the few days prior to arrival as well. She denied dysuria or hematuria. She also reported a few episodes
of loose stools although she does occasionally have abnormal bowel movements. At the time of admission, patient denied any fever, chills, cough, chest pain, shortness of breath, back pain, lightheadedness/dizziness.
#Presentation with Generalized Weakness, Fatigue and Lower Abdominal Discomfort, few episodes of loose stools
#Acute infectious pancolitis
#Severe diverticulosis in the sigmoid colon
#Mild intrahepatic and extrahepatic biliary dilatation with mild biliary wall hyperenhancement suggesting cholangitis
#Cholelithiasis
#Leukocytosis
Sepsis on admission:
Leukocytosis, HR 125, tachypnea 22 from UTI
- Continue IV antibiotics with Zosyn -- consulted ID given worsening leukocytosis and immature granulocytes despite Zosyn. Appreciate ID.
- C. diff negative. Norovirus negative.
- NPO except medication, ice chips, sips of clears
- IV fluids stopped given high blood pressure, can consider resuming at a lower dose later say at 50 cc/hr
- MCRP has been ordered, but can't be done due to PPM not MRI compatible, as per Carly Aly Dr. Do made aware
- GI consult given cholangitis/dilated biliary ducts on CT imaging
- Trend CMP
- Appreciate GI: constipation and chronic opioid use are concerns, Mag citrate 10oz cleanse today; Adv to low residue diet afterwards; Miralax going forward
- GI feels infectious colitis is not supported by history and cholangitis is less likely (even though seen on imaging) but follow-up MRCP was considered, but unable to perform. Still continue antibiotics in the setting of leukocytosis and concern.
GI has signed off
for infection -- patient still at least has a UTI (see below)
-Per GI recommendations: Mag citrate 10oz cleanse today; Adv to low residue diet afterwards; Miralax going forward
Gallstones noted on CT abd on admission, Will check GB US
#Significant Headache
-Could be from high blood pressure, cholangitis, colitis, antibiotics. Possibly due to caffeine withdrawal
-Checked CT Head (see below)
#Hypertensive Emergency
headache, no end organ damage
#Hypertension
- Despite treatment of patient's blood pressure with the medications below, her blood pressure remains very high with systolic 180s+ mmHg, patient has severe headache, discussed with campaign management specialist and
transfer out of ICU
- Continue home Coreg
- Continue losartan
- Added Amlodipine
- PRN Hydralazine
- Off Cardene Drip since 0906/17
# Stroke on CT Head 06/16/25 (not noted on CT scan of 11/05/23)
1. No CT evidence for acute intracranial hemorrhage or hydrocephalus.
2. Moderate bilateral temporal lobe volume loss.
3. New 1.0 cm infarct in the right putamen and right external capsule containing cytotoxic edema or encephalomalacia.
4. Mild periventricular white matter leukoaraiosis.
- Patient's neurological exam as of 06/16/25 was normal, but CT Head was done given severe headache in the setting if high blood pressure
- CT Head showed a stroke -- uncertain whether acute or chronic -- and in the setting of very high blood pressure -- consulted neurology
- communicated with Dr. Haro (neurologist) via [place] [employer], we discussed patient's CT Head findings from 06/16/25, and he agreed that patient should be treated as hypertensive emergency at this time with
Cardene Drip given, since stopped
- Appreciate neurology
Excessive alcohol intake must stop
family believes ~2-3 oz Gin per day
discussed with son and d-i-l, this need to stop. She is done with Etoh
#Non Anion Gap Metabolic Acidosis
- Could be from normal saline IV fluids, diarrhea
- Stopped previously given normal saline IV fluids
- LR was subsequently given, bicarb improved
#Symptoms of urinary frequency and urinary urgency prior to arrival
#Oliguria prior to arrival
#Klebsiella Pneumoniae UTI
- IV Zosyn changed to Unasyn
- Urine culture grew Klebsiella, sensitive to all except Amoxicillin
#Paroxysmal Atrial Fibrillation
- cont ELECTROLYTIC ETCHER Coreg with hold parameter
- not on AC likely due to recent peptic ulcer disease
#History of Peptic Ulcer Disease in 2021
- Received red blood cell transfusions around the time of having peptic ulcer disease
- Resume PPI
#Chronic HFpEF
#History of cardiomyopathy status post Bi-V ICD
-Continue home Coreg and Losartan
#Chronic Kidney Disease Stage 3
- Monitor BMP
#Hyperlipidemia
- Continue Rosuvastatin
#Diabetes Mellitus
- ISS low
#History of hospital-acquired pneumonia with methicillin-sensitive Staph aureus in 2021
#History of Right Knee Surgery
#History of Compression Fracture
#Severe calcific atherosclerotic plaque in the abdominal aorta.
#Severe bilateral renal scarring.
#Moderate distention of the left renal pelvis (possibly secondary to a partial obstruction of the left ureteropelvic junction).
#Multilevel vertebral body endplate fractures in the lower thoracic and upper lumbar spine.
#Severe discogenic degenerative disease and facet joint arthrosis in the lower lumbar spine.
DVT Prophylaxis: Heparin subq
Code Status: Full code
Hypertensive emergency is a high risk encounter
reviewed with Neal gould 06/18, 30 minutes on phone
Anticipated Discharge: > 48 hours
Subjective/Interval History
-
Date of Service: June 18, 2025
Voice is stronger
Objective Data
-
Vital Signs:
Vital Signs
Temp Pulse Resp BP Pulse Ox
98.0 F 89 16 140/81 93
06/18/25 15:34 06/18/25 17:45 06/18/25 17:45 06/18/25 16:47 06/18/25 17:45
I&O
06/17/25 06/18/25 06/19/25
06:59 06:59 06:59
Intake Total 125.0 / 205.0 1060.0 / 1060.0 120 / 120
Output Total 200 / 200 400 / 400
Balance -75.0 / 5.0 660.0 / 660.0 120 / 120
Review of Systems
-
History Source: Patient, Family (son, Neal) and Coordinated Provider (DAMIEN Hou)
Constitutional: Denies Fever
EENT: Reports No Symptoms Reported
Respiratory: Reports No Symptoms
Cardiac: Reports No Symptoms
Abdomen/GI: Reports Abdominal Pain (mild)
Genitourinary: Reports Frequency; Denies Dysuria
Physical Exam
-
General: Well Developed, Well Nourished and No Apparent Distress
HEENT: Normocephalic, Atraumatic and Moist Mucous Membranes
Respiratory: Clear to Auscultation; Negative Wheezes, Rales or Rhonchi
Cardiac: Regular Rhythm and S1/S2
GI: Soft and Tender (mild lower abdomen)
Genito-urinary: No Costovertebral Tender
Skin: Warm and Dry
Neuro: Awake, Alert and Oriented
[2025-06-18] MEDS: ASPIR LOW (ENTERIC COATED) 81 MG PO (20:05)
[2025-06-18] MEDS: CRESTOR 10 MG PO (20:05)
[2025-06-18 21:06] LABS: Lyme Disease DNA by PCR Not Detected; Lyme Source Serum
[2025-06-18] MEDS: MELATONIN 3 MG PO (21:46)
[2025-06-19] VITALS (9 sets, daily range): BP systolic 110–150; BP diastolic 66–93; PULSE 82–85; O2SAT 98; BMI 21.5
[2025-06-19] MEDS: UNASYN IV (05:20)
[2025-06-19 07:59] LABS: Hematocrit 40.6 % (37.0-47.0); Hemoglobin 14.0 g/dL (12.0-16.0); Mean Corp Hgb Conc. 34.5 g/dL (33.0-37.0); Mean Corpuscular Volume 97.8 fL (81.0-99.0); Nucleated Red Blood Cells % 0 %; Platelet Count 212 10^3/uL (130-400); Red Cell Dist. Width 12.4 % (11.5-14.5)
[2025-06-19] MEDS: NORVASC 5 MG PO ×2 (08:25→21:32)
[2025-06-19] MEDS: FOLVITE 1 MG PO (08:26)
[2025-06-19] MEDS: COREG 6.25 MG PO ×2 (08:26→21:32)
[2025-06-19] MEDS: FLUSH (NSS) 1 FLUSH IV (08:26)
[2025-06-19] MEDS: COZAAR 100 MG PO (08:26)
[2025-06-19] MEDS: THIAMINE INJECTION 200 MG IV ×2 (08:26→21:32)
[2025-06-19] MEDS: PROTONIX 40 MG PO (08:26)
[2025-06-19] MEDS: HEPARIN 5000 UNITS SC ×2 (08:27→21:32)
[2025-06-19 08:29] LABS: ALT (SGPT) < 10 U/L (0-35); AST (SGOT) 16 U/L (14-36); Albumin 3.7 g/dl (3.5-5.0); Alkaline Phosphatase 91 U/L (38-126); Blood Urea Nitrogen 26 mg/dl (7-17); Calcium 8.4 mg/dl (8.4-10.2); Carbon Dioxide 23 mmol/L (22-30); Chloride 103 mmol/L (98-107); Estimated Creatinine Clearance 44 ml/min; Glucose 83 mg/dl (70-99); Potassium 3.3 mmol/L (3.5-5.1); Sodium 135 mmol/L (135-145); Total Protein 6.5 g/dl (6.3-8.2); eGFR > 60.00
[2025-06-19] MEDS: TYLENOL 650 MG PO (08:31)
--- NOTE | 2025-06-19 09:10 | W.PN.HOSP.TC ---
Addendum entered and electronically signed by Abraham Mock MD 06/19/25 12:28:
met with son in room
Original Note:
Today's Communication/Plan
-
continue IV abx
K supplement
PT/OT
dispo planning
Assessment / Plan
Assessment / Plan
Assessment/Plan
80-year-old female with history CHF, CAD with pacemaker/defibrillator, hypertension, hyperlipidemia, and diabetes mellitus who presented to the emergency department with 5 days of generalized weakness and lower abdominal discomfort. She had been
extremely fatigued and generally weak, feeling that she could not get out of bed. She reported experiencing urinary frequency and urgency over the few days prior to arrival as well. She denied dysuria or hematuria. She also reported a few episodes
of loose stools although she does occasionally have abnormal bowel movements. At the time of admission, patient denied any fever, chills, cough, chest pain, shortness of breath, back pain, lightheadedness/dizziness.
#Presentation with Generalized Weakness, Fatigue and Lower Abdominal Discomfort, few episodes of loose stools
#Acute infectious pancolitis
#Severe diverticulosis in the sigmoid colon
#Mild intrahepatic and extrahepatic biliary dilatation with mild biliary wall hyperenhancement suggesting cholangitis
#Cholelithiasis
GBUS: Gallstones. Stable. No secondary findings to suggest acute cholecystitis.
#Leukocytosis
Sepsis on admission:
Leukocytosis, HR 125, tachypnea 22 from UTI
- Continue IV antibiotics with Zosyn -- consulted ID given worsening leukocytosis and immature granulocytes despite Zosyn. Appreciate ID.
- C. diff negative. Norovirus negative.
- NPO except medication, ice chips, sips of clears
- IV fluids stopped
- MCRP has been ordered, but can't be done due to PPM not MRI compatible, as per Carly Aly Dr. Do made aware
- GI consult given cholangitis/dilated biliary ducts on CT imaging
- Trend CMP
- Appreciate GI: constipation and chronic opioid use are concerns, Mag citrate 10oz cleanse today; Adv to low residue diet afterwards; Miralax going forward
- GI feels infectious colitis is not supported by history and cholangitis is less likely (even though seen on imaging) but follow-up MRCP was considered, but unable to perform. Still continue antibiotics in the setting of leukocytosis and concern.
GI has signed off
for infection -- patient still at least has a UTI (see below)
-Per GI recommendations: Mag citrate 10oz cleanse today; Adv to low residue diet afterwards; Miralax going forward
#Significant Headache
-Could be from high blood pressure, cholangitis, colitis, antibiotics. Possibly due to caffeine withdrawal
-Checked CT Head (see below)
As of 06/19 headache essentially resolved. Minimal residual in forehead, distribution consistent with muscle tension h/a (probably related to chronic neck arthritis and different pillow)
#Hypertensive Emergency
headache, no end organ damage
#Hypertension
- resolved. BP well controlled on Norvasc in addition to prior BP Rx
- Continue home Coreg
- Continue losartan
- Added Amlodipine
- PRN Hydralazine
- Off Cardene Drip since 0906/17
# Stroke on CT Head 06/16/25 (not noted on CT scan of 11/05/23)
1. No CT evidence for acute intracranial hemorrhage or hydrocephalus.
2. Moderate bilateral temporal lobe volume loss.
3. New 1.0 cm infarct in the right putamen and right external capsule containing cytotoxic edema or encephalomalacia.
4. Mild periventricular white matter leukoaraiosis.
- Patient's neurological exam as of 06/16/25 was normal, but CT Head was done given severe headache in the setting if high blood pressure
unclear if the 1.0 cm infarct noted in the CT scan has any relationship to current hospitalization or not. It is only that was not seen in the CT scan from 18 mos ago
- CT Head showed a stroke -- uncertain whether acute or chronic -- and in the setting of very high blood pressure -- consulted neurology
- communicated with Dr. Haro (neurologist) via [employer], we discussed patient's CT Head findings from 06/16/25, and he agreed that patient should be treated as hypertensive emergency at this time with
Cardene Drip given, since stopped
- Appreciate neurology
Excessive alcohol intake must stop
family believes ~2-3 oz Gin per day
discussed with son and d-i-l, this need to stop. She is done with Etoh. Discussed with pt today, 06/19, she has been made aware that Etoh consumption needs to stop
#Non Anion Gap Metabolic Acidosis
- Could be from normal saline IV fluids, diarrhea
- Stopped previously given normal saline IV fluids
- LR was subsequently given, bicarb improved
Hypokalemia
K 3.3, will supplement
UTI
#Symptoms of urinary frequency and urinary urgency prior to arrival
#Oliguria prior to arrival
#Klebsiella Pneumoniae UTI
WBC remained elevated
19.1-->17.4-->17.0-->as of today, 06/19 now 12.6k
- IV Zosyn changed to Unasyn
- Urine culture grew Klebsiella, sensitive to all except Amoxicillin
would continue Unasyn until WBC has fully normalized
#Paroxysmal Atrial Fibrillation
- cont HAND MOLDER MEAT Coreg with hold parameter
- not on AC likely due to recent peptic ulcer disease
#History of Peptic Ulcer Disease in 2021
- Received red blood cell transfusions around the time of having peptic ulcer disease
- Resume PPI
#Chronic HFpEF
#History of cardiomyopathy status post Bi-V ICD
-Continue home Coreg and Losartan
#doubt Chronic Kidney Disease Stage 3, most likely KAREN, now resolved
- Monitor BMP
#Hyperlipidemia
- Continue Rosuvastatin
#Diabetes Mellitus
- ISS low
#History of hospital-acquired pneumonia with methicillin-sensitive Staph aureus in 2021
#History of Right Knee Surgery
#History of Compression Fracture
#Severe calcific atherosclerotic plaque in the abdominal aorta.
#Severe bilateral renal scarring.
#Moderate distention of the left renal pelvis (possibly secondary to a partial obstruction of the left ureteropelvic junction).
#Multilevel vertebral body endplate fractures in the lower thoracic and upper lumbar spine.
#Severe discogenic degenerative disease and facet joint arthrosis in the lower lumbar spine.
DVT Prophylaxis: Heparin subq
Code Status: Full code
PT/OT
Will review with son DC plans, attempted to call x2 this morning, NA, will try again later
Anticipated Discharge: 24 - 48 hours
Subjective/Interval History
-
Date of Service: June 19, 2025
Awake, alert, conversant
Objective Data
-
Labs:
Laboratory Results
06/19/25
06:22
WBC 12.6 H
Hgb 14.0
Hct 40.6
Plt Count 212
Sodium 135
Potassium 3.3 L
Chloride 103
Carbon Dioxide 23
BUN 26 H
Creatinine 0.9
Glucose 83
Calcium 8.4
Total Bilirubin 0.9
AST 16
ALT < 10
Alkaline Phosphatase 91
Vital Signs:
Vital Signs
Temp Pulse Resp BP Pulse Ox
98.1 F 92 18 147/93 97
06/19/25 07:53 06/19/25 08:26 06/19/25 07:53 06/19/25 08:26 06/19/25 08:02
I&O
06/18/25 06/19/25 06/20/25
06:59 06:59 06:59
Intake Total 1060.0 / 1060.0 120 / 120
Output Total 400 / 400
Balance 660.0 / 660.0 120 / 120
Review of Systems
-
History Source: Patient and Family (son, Neal)
Constitutional: Denies Fever
EENT: Reports No Symptoms Reported
Respiratory: Reports No Symptoms
Cardiac: Reports No Symptoms
Abdomen/GI: Reports Abdominal Pain (mild, not resolved)
Genitourinary: Reports Frequency; Denies Dysuria
Physical Exam
-
General: Well Developed, Well Nourished and No Apparent Distress
HEENT: Normocephalic, Atraumatic and Moist Mucous Membranes
Respiratory: Clear to Auscultation; Negative Wheezes, Rales or Rhonchi
Cardiac: Regular Rhythm and S1/S2
GI: Soft and Tender (mild lower abdomen)
Genito-urinary: No Costovertebral Tender
Skin: Warm and Dry
Neuro: Awake, Alert and Oriented
[2025-06-19] MEDS: KCL 20 MEQ PO (10:05)
[2025-06-19] MEDS: ROXICODONE 5 MG PO (10:06)
--- NOTE | 2025-06-19 11:05 | W.PN.ID1 ---
Date of Service
Date of Service: June 19, 2025
Today's Communication
Continue antibiotics. Transition to oral Augmentin.
Assessment / Plan
Leukocytosis
Abdominal discomfort
Bacteriuria; suspected complicated urinary tract infection
- Cultures with Klebsiella pneumoniae
Atrial fibrillation
CKD
DM
CAD
CHF
HTN
Peptic ulcer disease
Recommendations:
White count noted to be improved today. Urine culture with Klebsiella pneumoniae, although urinalysis indicates contamination given the finding of squamous epithelial cells.
Transition to Augmentin 500 mg p.o. BID for an additional 7 days.
����������������������������������������������������������
Chief Complaint
-: Leukocytosis and Bacteremia
Subjective / Review of Systems
Review of Systems: No Fever and No Chills
Vital Signs / Physical Exam
Vital Signs
Vital Signs
Temp Pulse Resp BP Pulse Ox
98.1 F 92 18 147/93 97
06/19/25 07:53 06/19/25 08:26 06/19/25 07:53 06/19/25 08:26 06/19/25 08:02
Physical Exam
Constitutional: No Acute Distress and Comfortable
Eyes: Sclera Anicteric
Cardiovascular: S1/S2; Negative S3/S4
Pulmonary: Non Labored
Gastrointestinal: Soft, Non Tender, Non Distended, Normal Bowel Sounds, No Rebound and No Guarding
Genito-Urinary: Negative Nelson
Extremities: Negative Edema, Cyanosis or Erythema
Neurological: Awake and Alert
Psychological: Calm
Objective Data
Lab Data
Lab Results
06/19/25 06:22
06/19/25 06:22
PT 13.6 Sec (11.4-14.6) 06/17/25 03:56
INR 1.01 06/17/25 03:56
APTT 30.9 Sec (23.4-35.0) 06/17/25 03:56
Estimated Creat Clear 44 ml/min 06/19/25 06:22
Lactic Acid 1.0 mmol/L (0.7-2.0) 06/15/25 15:39
Total Bilirubin 0.9 mg/dl (0.2-1.3) 06/19/25 06:22
AST 16 U/L (14-36) 06/19/25 06:22
ALT < 10 U/L (0-35) 06/19/25 06:22
Alkaline Phosphatase 91 U/L (38-126) 06/19/25 06:22
Most recent labs reviewed.
Micro Results:
06/15/25 17:12 Blood Culture - Preliminary
Blood/Venous No Growth in 72 hours- Final report to follow
06/15/25 15:39 Blood Culture - Preliminary
Blood/Venous No Growth in 72 hours- Final report to follow
06/14/25 19:15 Salmonella/Shigella Culture - Final
Feces/Stool No Salmonella, Shigella, Aeromonas or Plesiomonas species
isolated.
Campylobacter Culture - Final
No Campylobacter species isolated.
Shiga Toxin Test - Final
No E. coli Shiga Toxin 1 or 2 detected.
06/14/25 13:57 Urine Culture - Final
Urine Klebsiella pneumoniae
06/14/25 19:15 - Final
Feces/Stool Negative for Norovirus GI and GII.
06/14/25 19:15 C. difficile GDH Antigen & Toxins - Final
Feces/Stool Negative for toxigenic C.difficile
Imaging:
06/14/2025 CT abdomen/pelvis with contrast: mild acute pancolitis. Severe diverticulosis in the sigmoid colon. Severe calcific atherosclerotic plaque in the abdominal aorta. Severe bilateral renal scarring. Moderate distention of the left renal
pelvis (possibly secondary to a partial obstruction of the left ureteropelvic junction). Mild intrahepatic and extrahepatic biliary dilatation with mild biliary wall hyperenhancement. Cholelithiasis without evidence for acute cholecystitis.
Multilevel vertebral body endplate fractures in the lower thoracic and upper lumbar spine. Please see full dictation for additional detail.
[2025-06-19 11:42] LABS: Lyme Antibody Screen, EIA Presump. Positive (Negative)
--- NOTE | 2025-06-19 16:08 | PTCARENOTE ---
Pt AAO x3, forgetful at times. CAPONE well, OOB in room/to BR; denies weakness/dizziness. Refuses to use cane- 'I don't need it'. Gait steady. Pt occ c/o low back pain with activity. VSS. Telemetry:NSR with V-pacing. On room air- pulseox 98%, no
SOB noted. Abd soft, rounded, odell PO well. Voids in BR without difficulty. Resting in bed at present. Will continue to monitor.
[2025-06-19] MEDS: AUGMENTIN 500 MG/125 MG 1 TABLET PO (21:32)
[2025-06-19] MEDS: ASPIR LOW (ENTERIC COATED) 81 MG PO (21:41)
[2025-06-19] MEDS: MELATONIN 3 MG PO (21:41)
[2025-06-19] MEDS: CRESTOR 10 MG PO (21:41)
[2025-06-20 03:21] VITALS: BP 114/57
[2025-06-20 06:00] VITALS: BMI 21.8
[2025-06-20 07:09] LABS: Hematocrit 37.7 % (37.0-47.0); Hemoglobin 13.2 g/dL (12.0-16.0); Mean Corp Hgb Conc. 35.0 g/dL (33.0-37.0); Mean Corpuscular Volume 97.7 fL (81.0-99.0); Nucleated Red Blood Cells % 0 %; Platelet Count 190 10^3/uL (130-400); Red Cell Dist. Width 12.3 % (11.5-14.5)
[2025-06-20 07:36] VITALS: BP 149/81
[2025-06-20 07:38] LABS: Blood Urea Nitrogen 33 mg/dl (7-17); Calcium 8.5 mg/dl (8.4-10.2); Carbon Dioxide 23 mmol/L (22-30); Chloride 106 mmol/L (98-107); Estimated Creatinine Clearance 36 ml/min; Glucose 93 mg/dl (70-99); Potassium 3.7 mmol/L (3.5-5.1); Sodium 134 mmol/L (135-145); eGFR 51.43
[2025-06-20] MEDS: COZAAR 100 MG PO (08:53)
[2025-06-20] MEDS: PROTONIX 40 MG PO (08:53)
[2025-06-20] MEDS: VITAMIN B1 100 MG PO (08:54)
[2025-06-20] MEDS: COREG 6.25 MG PO (08:54)
[2025-06-20] MEDS: KCL 20 MEQ PO (08:54)
[2025-06-20] MEDS: FOLVITE 1 MG PO (08:54)
[2025-06-20] MEDS: NORVASC 5 MG PO (08:54)
[2025-06-20] MEDS: AUGMENTIN 500 MG/125 MG 1 TABLET PO (08:54)
[2025-06-20] MEDS: HEPARIN 5000 UNITS SC (08:55)
[2025-06-20] MEDS: ROXICODONE 5 MG PO (08:57)
[2025-06-20 11:11] VITALS: BP 116/66
[2025-06-20 12:10] VITALS: BP 116/71; BP 130/77; PULSE 88; O2SAT 96
--- NOTE | 2025-06-20 14:10 | W.PN.ID1 ---
Date of Service
Date of Service: June 20, 2025
Today's Communication
Sign off
Assessment / Plan
Leukocytosis
Abdominal discomfort
Bacteriuria; suspected complicated urinary tract infection
- Cultures with Klebsiella pneumoniae
Atrial fibrillation
CKD
DM
CAD
CHF
HTN
Peptic ulcer disease
Recommendations:
White count noted to be improved today. Urine culture with Klebsiella pneumoniae, although urinalysis indicates contamination given the finding of squamous epithelial cells.
Continue Augmentin 500 mg p.o. BID for an additional 6 days.
Little more to offer from a Infectious Disease standpoint.
Will see again at your request.
����������������������������������������������������������
Chief Complaint
-: Leukocytosis
Subjective / Review of Systems
Patient seen and examined. Denies abdominal pain. Denies nausea or vomiting. Feels generally fatigued.
Review of Systems: No Fever and No Chills
Vital Signs / Physical Exam
Vital Signs
Vital Signs
Temp Pulse Resp BP Pulse Ox
97.6 F 81 16 116/66 95
06/20/25 11:11 06/20/25 11:11 06/20/25 11:11 06/20/25 11:11 06/20/25 11:11
Physical Exam
Constitutional: No Acute Distress and Comfortable
Eyes: Sclera Anicteric
Cardiovascular: S1/S2; Negative S3/S4
Pulmonary: Non Labored
Gastrointestinal: Soft, Non Tender, Non Distended, Normal Bowel Sounds, No Rebound and No Guarding
Genito-Urinary: Negative Nelson
Extremities: Negative Edema, Cyanosis or Erythema
Neurological: Awake and Alert
Psychological: Calm
Objective Data
Lab Data
Lab Results
06/20/25 06:35
06/20/25 06:35
PT 13.6 Sec (11.4-14.6) 06/17/25 03:56
INR 1.01 06/17/25 03:56
APTT 30.9 Sec (23.4-35.0) 06/17/25 03:56
Estimated Creat Clear 36 ml/min 06/20/25 06:35
Lactic Acid 1.0 mmol/L (0.7-2.0) 06/15/25 15:39
Total Bilirubin 0.9 mg/dl (0.2-1.3) 06/19/25 06:22
AST 16 U/L (14-36) 06/19/25 06:22
ALT < 10 U/L (0-35) 06/19/25 06:22
Alkaline Phosphatase 91 U/L (38-126) 06/19/25 06:22
Most recent labs reviewed.
Micro Results:
06/15/25 17:12 Blood Culture - Preliminary
Blood/Venous No Growth in 4 days- Final report to follow
06/15/25 15:39 Blood Culture - Preliminary
Blood/Venous No Growth in 4 days- Final report to follow
06/14/25 19:15 Salmonella/Shigella Culture - Final
Feces/Stool No Salmonella, Shigella, Aeromonas or Plesiomonas species
isolated.
Campylobacter Culture - Final
No Campylobacter species isolated.
Shiga Toxin Test - Final
No E. coli Shiga Toxin 1 or 2 detected.
06/14/25 13:57 Urine Culture - Final
Urine Klebsiella pneumoniae
06/14/25 19:15 - Final
Feces/Stool Negative for Norovirus GI and GII.
06/14/25 19:15 C. difficile GDH Antigen & Toxins - Final
Feces/Stool Negative for toxigenic C.difficile
Imaging:
06/14/2025 CT abdomen/pelvis with contrast: mild acute pancolitis. Severe diverticulosis in the sigmoid colon. Severe calcific atherosclerotic plaque in the abdominal aorta. Severe bilateral renal scarring. Moderate distention of the left renal
pelvis (possibly secondary to a partial obstruction of the left ureteropelvic junction). Mild intrahepatic and extrahepatic biliary dilatation with mild biliary wall hyperenhancement. Cholelithiasis without evidence for acute cholecystitis.
Multilevel vertebral body endplate fractures in the lower thoracic and upper lumbar spine. Please see full dictation for additional detail.
--- NOTE | 2025-06-20 14:20 | W.PN.HOSP.TC ---
Today's Communication/Plan
-
dc now
Assessment / Plan
Assessment / Plan
Assessment/Plan
80-year-old female with history CHF, CAD with pacemaker/defibrillator, hypertension, hyperlipidemia, and diabetes mellitus who presented to the emergency department with 5 days of generalized weakness and lower abdominal discomfort. She had been
extremely fatigued and generally weak, feeling that she could not get out of bed. She reported experiencing urinary frequency and urgency over the few days prior to arrival as well. She denied dysuria or hematuria. She also reported a few episodes
of loose stools although she does occasionally have abnormal bowel movements. At the time of admission, patient denied any fever, chills, cough, chest pain, shortness of breath, back pain, lightheadedness/dizziness.
#Presentation with Generalized Weakness, Fatigue and Lower Abdominal Discomfort, few episodes of loose stools
#Acute infectious pancolitis
#Severe diverticulosis in the sigmoid colon
#Mild intrahepatic and extrahepatic biliary dilatation with mild biliary wall hyperenhancement suggesting cholangitis
#Cholelithiasis
GBUS: Gallstones. Stable. No secondary findings to suggest acute cholecystitis.
#Leukocytosis
Sepsis on admission:
Leukocytosis, HR 125, tachypnea 22 from UTI
- Continue IV antibiotics with Zosyn -- consulted ID given worsening leukocytosis and immature granulocytes despite Zosyn. Appreciate ID.
- C. diff negative. Norovirus negative.
- NPO except medication, ice chips, sips of clears
- IV fluids stopped
- MCRP has been ordered, but can't be done due to PPM not MRI compatible, as per Carly Aly Dr. Do made aware
- GI consult given cholangitis/dilated biliary ducts on CT imaging
- Trend CMP
- Appreciate GI: constipation and chronic opioid use are concerns, Mag citrate 10oz cleanse today; Adv to low residue diet afterwards; Miralax going forward
- GI feels infectious colitis is not supported by history and cholangitis is less likely (even though seen on imaging) but follow-up MRCP was considered, but unable to perform. Still continue antibiotics in the setting of leukocytosis and concern.
GI has signed off
for infection -- patient still at least has a UTI (see below)
-Per GI recommendations: Mag citrate 10oz cleanse today; Adv to low residue diet afterwards; Miralax going forward
#Significant Headache
-Headache is classic muscle tension/arthritis headache in distribution. Possibly exacerbated by pillow
-Checked CT Head (see below)
As of 06/19 headache essentially resolved. Minimal residual in forehead, distribution consistent with muscle tension h/a (probably related to chronic neck arthritis and different pillow)
#Hypertensive Emergency
no end organ damage
- resolved. BP well controlled on Norvasc in addition to prior BP Rx
- Continue home Coreg
- Continue losartan
- Added Amlodipine
- PRN Hydralazine
- Off Cardene Drip since 0906/17
# Stroke on CT Head 06/16/25 (not noted on CT scan of 11/05/23)
1. No CT evidence for acute intracranial hemorrhage or hydrocephalus.
2. Moderate bilateral temporal lobe volume loss.
3. New 1.0 cm infarct in the right putamen and right external capsule containing cytotoxic edema or encephalomalacia.
4. Mild periventricular white matter leukoaraiosis.
- Patient's neurological exam as of 06/16/25 was normal, but CT Head was done given severe headache in the setting if high blood pressure
unclear if the 1.0 cm infarct noted in the CT scan has any relationship to current hospitalization or not. It is only that was not seen in the CT scan from 18 mos ago
- CT Head showed a stroke -- uncertain whether acute or chronic -- and in the setting of very high blood pressure -- consulted neurology
- communicated with Dr. Haro (neurologist) via [place] [place], we discussed patient's CT Head findings from 06/16/25, and he agreed that patient should be treated as hypertensive emergency at this time with
Cardene Drip given, since stopped
- Appreciate neurology
Excessive alcohol intake must stop
family believes ~2-3 oz Gin per day
discussed with son and d-i-l, this need to stop. She is done with Etoh. Discussed with pt today, 06/19, she has been made aware that Etoh consumption needs to stop
#Non Anion Gap Metabolic Acidosis
- Could be from normal saline IV fluids, diarrhea
- Stopped previously given normal saline IV fluids
- LR was subsequently given, bicarb improved
Hypokalemia
K 3.3, repeat K now 3.7
UTI
#Symptoms of urinary frequency and urinary urgency prior to arrival
#Oliguria prior to arrival
#Klebsiella Pneumoniae UTI
WBC remained elevated
19.1-->17.4-->17.0-->as of today, 06/19 12.6-->11.1k
- IV Zosyn changed to Unasyn
- Urine culture grew Klebsiella, sensitive to all except Amoxicillin
would continue Unasyn until WBC has fully normalized
#Paroxysmal Atrial Fibrillation
- cont PHOTOGRAPHIC SPOTTER Coreg with hold parameter
- not on AC likely due to recent peptic ulcer disease
#History of Peptic Ulcer Disease in 2021
- Received red blood cell transfusions around the time of having peptic ulcer disease
- Resume PPI
#Chronic HFpEF
#History of cardiomyopathy status post Bi-V ICD
-Continue home Coreg and Losartan
#doubt Chronic Kidney Disease Stage 3, most likely KAREN, now resolved
- Monitor BMP
#Hyperlipidemia
- Continue Rosuvastatin
#Diabetes Mellitus
- ISS low
#History of hospital-acquired pneumonia with methicillin-sensitive Staph aureus in 2021
#History of Right Knee Surgery
#History of Compression Fracture
#Severe calcific atherosclerotic plaque in the abdominal aorta.
#Severe bilateral renal scarring.
#Moderate distention of the left renal pelvis (possibly secondary to a partial obstruction of the left ureteropelvic junction).
#Multilevel vertebral body endplate fractures in the lower thoracic and upper lumbar spine.
#Severe discogenic degenerative disease and facet joint arthrosis in the lower lumbar spine.
DVT Prophylaxis: Heparin subq
Code Status: Full code
PT/OT
reviewed with son at desk
More than 30 minutes spent in discharge including
Final examination of the patient
Summarizing hospital stay
Instructions for continuing care to all relevant caregivers
Preparation of discharge records, prescriptions, and referral forms
Total time spent (in minutes): 45
Anticipated Discharge: Today
Subjective/Interval History
-
Date of Service: June 20, 2025
overall feels better, walking around floor with staff
Objective Data
-
Labs:
Laboratory Results
06/20/25
06:35
WBC 11.1 H
Hgb 13.2
Hct 37.7
Plt Count 190
Sodium 134 L
Potassium 3.7
Chloride 106
Carbon Dioxide 23
BUN 33 H
Creatinine 1.1 H
Glucose 93
Calcium 8.5
Vital Signs:
Vital Signs
Temp Pulse Resp BP Pulse Ox
97.6 F 81 16 116/66 95
06/20/25 11:11 06/20/25 11:11 06/20/25 11:11 06/20/25 11:11 06/20/25 11:11
I&O
06/19/25 06/20/25 06/21/25
06:59 06:59 06:59
Intake Total 120 / 120 990 / 990
Balance 120 / 120 990 / 990
Review of Systems
-
History Source: Patient and Family (Neal gould)
Constitutional: Denies Fever
EENT: Reports No Symptoms Reported
Respiratory: Reports No Symptoms
Cardiac: Reports No Symptoms
Abdomen/GI: Reports Abdominal Pain (mild, not resolved)
Genitourinary: Reports Frequency; Denies Dysuria
Physical Exam
-
General: Well Developed, Well Nourished and No Apparent Distress
HEENT: Normocephalic, Atraumatic and Moist Mucous Membranes
Respiratory: Clear to Auscultation; Negative Wheezes, Rales or Rhonchi
Cardiac: Regular Rhythm and S1/S2
GI: Soft and Tender (mild lower abdomen)
Genito-urinary: No Costovertebral Tender
Skin: Warm and Dry
Neuro: Awake, Alert and Oriented
[2025-06-20 15:11] VITALS: BP 110/58
--- NOTE | 2025-06-20 16:08 | CM ---
MD entered order for discharge.
Spoke with pt at bedside .
She said her son Jb will drive her home.
She agrees with discharge.
Offered VN she declined need.
PLAN Home no needs
--- NOTE | 2025-06-20 17:51 | W.DS.TRANS ---
DC Summary - [employer]
-
Discharge Instructions:
Sleep Apnea Risk Low
Discharge Diagnosis/Procedures Urinary Tract Infection with Encephalopathy
Diet Regular
Additional Diets No alcohol
Activity With assistance,As tolerated,With Walker
Driving Restrictions Not until seen by your Dr
Bathing Restrictions None
Blood Work CBC, CMP in 1-2 weeks, Urine with culture in 2-3
weeks
Other Services VN,PT
Instructions:
Stand-Alone Forms:
Changes to Home Medications: Yes
Discharge Medications:
DC Medications w/original date entered in [facility]
carvedilol 6.25 mg tablet 6.25 mg PO BID Blood pressure 10/07/15
rosuvastatin 10 mg tablet 10 mg PO HS High cholesterol 10/07/15
aspirin 81 mg tablet,delayed release 81 mg PO HS Blood clot prevention/tx 04/26/22
oxycodone 10 mg tablet 10 mg PO Q6HPRN PRN severe pains 06/14/25
acetaminophen 325 mg tablet 650 mg (2 x 325 mg) PO Q4HPRN PRN mild pain/IRIZARRY/temp> 100.4F #0 tabs 06/20/25
amlodipine 5 mg tablet 5 mg PO BID #60 tabs 06/20/25
amoxicillin 500 mg-potassium clavulanate 125 mg tablet 1 tab PO Q12 #14 tabs 06/20/25
losartan 50 mg tablet 100 mg (2 x 50 mg) PO DAILY #30 tabs 06/20/25
melatonin 3 mg tablet 3 mg PO HS #0 tabs 06/20/25
pantoprazole 40 mg tablet,delayed release 40 mg PO DAILY #30 tabs 06/20/25
Home Medication Changes
Protonix daily
Augmentin bid for next 7 days
Norvasc 5 mg bid added
Pending Results: No
[2025-06-22 05:58] LABS: Lyme Ab Western Blot IgG Positive (Negative); Lyme Ab Western Blot IgM Negative (Negative)
== END 2025-06-20 15:37 | disposition home or self-care (01) | DRG 871 ==
LOC: 4 EAST ACU 19:41
PROVIDERS: Hospitalist; Nurse Practitioner Family; Physician Assistant; Registered Nurse; ADMITTING PHYSICIAN Internal Medicine; ATTENDING PHYSICIAN Internal Medicine; CONSULT PHYSICIAN Internal Medicine Gastroenterology; CONSULT PHYSICIAN Internal Medicine Infectious Disease; CONSULT PHYSICIAN Psychiatry & Neurology Clinical Neurophysiology; EMERGENCY PHYSICIAN Emergency Medicine; FAMILY PHYSICIAN Internal Medicine; OTHER PHYSICIAN Internal Medicine Critical Care Medicine
DX: A41.59 Other Gram-negative sepsis (principal); G93.41 Metabolic encephalopathy; I63.81 Other cerebral infarction due to occlusion or stenosis of small artery; N39.0 Urinary tract infection, site not specified; I16.1 Hypertensive emergency; I50.32 Chronic diastolic (congestive) heart failure; N18.4 Chronic kidney disease, stage 4 (severe); I13.0 Hypertensive heart and chronic kidney disease with heart failure and stage 1 through stage 4 chronic kidney disease, or unspecified chronic kidney disease; A09 Infectious gastroenteritis and colitis, unspecified; I42.9 Cardiomyopathy, unspecified; B96.1 Klebsiella pneumoniae [K. pneumoniae] as the cause of diseases classified elsewhere; M81.0 Age-related osteoporosis without current pathological fracture; G44.209 Tension-type headache, unspecified, not intractable; Z86.19 Personal history of other infectious and parasitic diseases; I48.0 Paroxysmal atrial fibrillation; Z87.11 Personal history of peptic ulcer disease; K59.03 Drug induced constipation; T40.2X5A Adverse effect of other opioids, initial encounter; Z79.891 Long term (current) use of opiate analgesic; K21.9 Gastro-esophageal reflux disease without esophagitis; I25.10 Atherosclerotic heart disease of native coronary artery without angina pectoris; E78.00 Pure hypercholesterolemia, unspecified; E11.22 Type 2 diabetes mellitus with diabetic chronic kidney disease; Z96.651 Presence of right artificial knee joint; Z95.0 Presence of cardiac pacemaker; Z87.891 Personal history of nicotine dependence; Z79.82 Long term (current) use of aspirin; E66.9 Obesity, unspecified; Z11.52 Encounter for screening for COVID-19; G43.909 Migraine, unspecified, not intractable, without status migrainosus; G47.00 Insomnia, unspecified; I34.0 Nonrheumatic mitral (valve) insufficiency; M47.812 Spondylosis without myelopathy or radiculopathy, cervical region; M48.061 Spinal stenosis, lumbar region without neurogenic claudication; Z79.899 Other long term (current) drug therapy; Z87.01 Personal history of pneumonia (recurrent); Z88.1 Allergy status to other antibiotic agents; K57.30 Diverticulosis of large intestine without perforation or abscess without bleeding
CPT/HCPCS: 70450; 71045; 74177; 76705; 80048; 80053; 80076; 81003; 81015; 82248; 82550; 83036; 83605; 83735; 83880; 84100; 84132; 84484; 85025; 85027; 85610; 85730; 86617; 86618; 87040; 87045; 87046; 87077; 87086; 87186; 87324; 87427; 87449; 87476; 87798; 87811; 93005; 93289; 96365; 97116; 97163; 97167; 97530; 99285; Q9967

== ENCOUNTER → 2025-06-25 14:49 | Outpatient (REF) | payer MEDICARE, OTHER, SELFPAY | LOC: CLAB 14:49 | PROVIDERS: ATTENDING PHYSICIAN Internal Medicine | DX: G93.41 Metabolic encephalopathy (principal); A41.9 Sepsis, unspecified organism; I10 Essential (primary) hypertension; K52.9 Noninfective gastroenteritis and colitis, unspecified; I48.0 Paroxysmal atrial fibrillation; M48.062 Spinal stenosis, lumbar region with neurogenic claudication; R53.1 Weakness | CPT/HCPCS: 87077; 87086 ==

== ENCOUNTER → 2025-07-17 10:56 | Outpatient (REF) | payer MEDICARE, OTHER, SELFPAY | LOC: RAD 10:56 | PROVIDERS: ATTENDING PHYSICIAN Nurse Practitioner | DX: M25.531 Pain in right wrist (principal) | CPT/HCPCS: 73110; 73130 ==